=== PATIENT | female | born 1935 | race Caucasian/White ===

== ENCOUNTER 2022-09-26 11:00 | Inpatient (IN) | payer BC ==
[~2022-09-26] VITALS: Ht 157.5 cm; Wt 75.5 kg
[2022-09-26] VITALS (22 sets, daily range): BP systolic 85–119; BP diastolic 38–76
--- NOTE | 2022-09-26 11:00 | NUR ---
RECEIVED PT 87 YRS FEMALE CAME FROM HOME C/O Ccoughing and genralized weekness goting aorse today genralized weekness awake and alert
[2022-09-26] MEDS ORDERED: SUCCINYLCHOLINE CHLORIDE 20 MG/ML VIAL IV ONE ×2 (11:03→14:30)
[2022-09-26] MEDS ORDERED: ETOMIDATE 2 MG/ML VIAL IV ONE ×2 (11:03→14:30)
[2022-09-26] MEDS ORDERED: IV NS 0.9% 1,000 ML BAG IV ONE (11:30)
--- NOTE | 2022-09-26 11:40 | NUR ---
INSERTED ANGO CATHETER G 20 ON RT AC BLOOD DROW AND SENT TO LAB
[2022-09-26 12:12] LABS: BASOPHILS # (AUTO) 0.1 K/uL (0.0-0.2); BASOPHILS % (AUTO) 0.4 % (0.0-2.0); HEMATOCRIT 40 % (33-45); HEMOGLOBIN 13.1 g/dL (11.5-14.8); LYMPHOCYTES # (AUTO) 0.4 K/uL (0.8-4.8); LYMPHOCYTES % (AUTO) 3.4 % (20.0-44.0); MEAN CORPUSCULAR HGB CONC 33 g/dl (31.0-36.0); MEAN CORPUSCULAR VOLUME 89 fL (82-100); MONOCYTES # (AUTO) 1.2 K/uL (0.1-1.30); MONOCYTES % (AUTO) 10.3 % (2.0-12.0); NEUTROPHILS % (AUTO) 85.9 % (43.0-81.0); PLATELET COUNT (AUTO) 253 K/uL (150-450); RED BLOOD CELL COUNT(AUTO) 4.46 MIL/uL (4.0-5.2); WHITE BLOOD COUNT (AUTO) 11.6 K/uL (4.3-11.0)
--- NOTE | 2022-09-26 12:30 | NUR ---
PT STARTED HAVE SOB 2LNC ON CLOSLY OBSEVETION AND PLACE PT ON FIO2 100% STILL SOB
[2022-09-26 12:47] LABS: ALANINE AMINOTRANSFERASE 14 U/L (12-78); ALBUMIN 3.5 g/dL (3.4-5.0); ALKALINE PHOSPHATASE 79 U/L (46-116); ASPARTATE AMINOTRANSFERASE 23 U/L (15-37); BILIRUBIN,DIRECT 0.1 mg/dL (0.0-0.2); BILIRUBIN,TOTAL 0.5 mg/dL (0.2-1.0); CALCIUM, SERUM 8.4 mg/dL (8.5-10.1); CARBON DIOXIDE 27 mmol/L (21-32); CHLORIDE 98 mmol/L (98-107); CREATININE 0.8 mg/dL (0.6-1.3); GLUCOSE 119 mg/dL (74-106); POTASSIUM 3.7 mmol/L (3.5-5.1); SODIUM SERUM 134 mmol/L (136-145); TOTAL PROTEIN, SERUM 6.7 g/dL (6.4-8.2); UREA NITROGEN, BLOOD 10 mg/dL (7-18)
[2022-09-26] MEDS ORDERED: VANCOMYCIN 1 GM in IV D5W 250 ML IV ONE (13:00)
[2022-09-26] MEDS ORDERED: CEFEPIME 1 GM in IV D5W 50 ML IV ONE (13:00)
[2022-09-26] MEDS ORDERED: NTG 50 MG/D5W250 ML BOTTL 250 ML IV PRN (13:00)
--- NOTE | 2022-09-26 13:00 | NUR ---
MOVE SHEET SUBMITTED.
--- NOTE | 2022-09-26 13:01 | NUR ---
DR. ZUNIGA AT BED SIDE PLACE PT ON PIPAB PT ON ASSISST
--- NOTE | 2022-09-26 13:01 | NUR ---
pt with sever sob swating skin cold and calmy
[2022-09-26] MEDS ORDERED: NITROGLYCERIN PACKET 1 GM PACKET ONE (13:06)
--- NOTE | 2022-09-26 13:15 | NUR ---
ETOMADITE 20 MG IVP GIVEN FALLOW WITH SUCCy 80mg ETT FR 7.5 ANF LIP LINE 22CM WITH CAMMERY GIDED AT 1318 CO2 GOLD COLOR CONECTED TO VENT SITEING AC 20 TV 500 PEEP 5 FIO2 100% HOB 40#
[2022-09-26] MEDS ORDERED: FUROSEMIDE 40 MG/4 ML VIAL IV ONE (13:30)
[2022-09-26] MEDS ORDERED: PROPOFOL 100 ML ONE (13:31)
--- NOTE | 2022-09-26 13:39 | NUR ---
[facility] CALLED DIRECTOR OF BLOOD PAGED.
--- NOTE | 2022-09-26 13:40 | NUR ---
SHAUN GARY PT WT 63K/MIN AT 10MCG/KG/MIN
[2022-09-26 13:42] LABS: ABG BASE EXCESS -6.6 mmol/L; ABG PCO2 54.9 mmHg (35.0-45.0); ABG PH 7.217 (7.350-7.450); ABG PO2 368.3 mmHg (75.0-100.0); COHb 0.6 % (0.5-1.5); MetHb 0.5 % (0.0-1.5); O2Hb 98.4 % (94.0-97.0); SITE, ABG Right Radial
[2022-09-26] MEDS ORDERED: LATA2.5D15 EACHEYE (13:58)
[2022-09-26] MEDS ORDERED: LEVO100T9 PO (13:58)
[2022-09-26] MEDS ORDERED: AMLO-212 PO (13:58)
[2022-09-26] MEDS ORDERED: NITR100C15 PO (13:58)
[2022-09-26] MEDS ORDERED: FUROSEMIDE 40 MG/4 ML VIAL ONE (14:13)
--- NOTE | 2022-09-26 14:42 | NUR ---
RT INTUBATED WITH 7.5ETT 22CM AT LIP BILATERAL EQUAL BREATH SOUNDS, C02 COLOR CHANGE PLACED ON MECH VENT ABG DONE 5 MINS AFTER SETTING AC 18 500 +5 100% CHEST XRAY DONE TUBE PLACEMENT CONFIRMED WILL CONT TO MONITOR Addendum: 09/26/22 at 1444 by DELROY OVALLES RT Amended: Links added.
--- NOTE | 2022-09-26 14:42 | NUR ---
COVID SWAB SENT TO LAB
[2022-09-26 15:03] LABS: BILIRUBIN,URINE NEGATIVE (NEGATIVE); COLOR,URINE YELLOW (YELLOW); LEUKOCYTE ESTERASE ,URINE TRACE (NEGATIVE); NITRITE, URINE NEGATIVE (NEGATIVE); PROTEIN,URINE 2+ mg/dl (NEGATIVE); UGLUCOSE NEGATIVE (NEGATIVE); UROBILINOGEN,URINE 0.2 EU/dL (0.2)
[2022-09-26] MEDS ORDERED: MAG HYDROX/AL HYDROX/SIMETH 30 ML UDC PO PRN (15:30)
[2022-09-26] MEDS ORDERED: ONDANSETRON HCL/PF 4 MG/2 ML VIAL IVP PRN (15:30)
[2022-09-26] MEDS ORDERED: ZOLPIDEM TARTRATE 5 MG TABLET PO PRN (15:30)
[2022-09-26] MEDS ORDERED: MAGNESIUM HYDROXIDE 30 ML UDC PO PRN (15:30)
[2022-09-26] MEDS ORDERED: Z GUARD REMEDY 4 OZ OINT TP PRN (15:30)
[2022-09-26] MEDS ORDERED: ACETAMINOPHEN 325 MG TABLET PO PRN (15:30)
--- NOTE | 2022-09-26 15:42 | NUR ---
GOT BED 269
--- NOTE | 2022-09-26 15:44 | NUR ---
BED ASSIGNMENT CHANGED TO ICU 261
[2022-09-26] MEDS ORDERED: PROPOFOL 100 ML IV ONE (16:00)
--- NOTE | 2022-09-26 16:40 | NUR ---
HAND OFF Ryder GUERRA RN TO ROOM 261 WITH VENT FIO2 50% AC 20 TV500 PEEP 5 O2 SAT 99%
[2022-09-26 16:44] LABS: BACTERIA,URINE 1+ /HPF (None Seen); MUCUS,URINE Few /LPF (None Seen); SQUAMOUS EPITHELIAL CELL,UR 0-2 /HPF (None Seen)
--- NOTE | 2022-09-26 17:00 | NUR ---
INFZ SWAB SENT TO LAB
--- NOTE | 2022-09-26 18:00 | NUR ---
EMBEDDED ENGINEER NOTES RECEIVED PATIENT FROM ER INTUBATED, AND INFUSING DIPRIVAN 25MCG/KG/MIN. PATIENT HAS NO ACUTE EXPIRATORY DISTRESS TOLERATING SETTING WELL ETT- 7.5/22, TV-500, P-5, AC- 20, FIO2-100%. T-98.3. 166.7LB. SKIN ASSESSMENT DONE INTACT. IV ACCESS ON RIGHT HAND #18. DUE MEDICATION ADMINISTERED, PALACIOS DRAINING VIA GRAVITY OUTPUT WAS 300ML. BEDSIDE MONITOR SHOWS 75 SINUS RHYTHM. BILATERAL RESTRAIN ON RECHECKED CIRCULATION Q 2 HR. FAMILY NEXT TO THE BED. BELONGING SEND HOME WITH FAMILY, ONLY PATIENT HAS FOUR WHITE RINGS, AND WHITE PLAIN BRACELET ON. FAMILY SIGN BELONGING LIST. ENDORSED ONCOMING NURSE CRISTY.
[2022-09-26] MEDS: ENOXAPARIN SODIUM 60 MG/0.6 ML DISP.SYRIN SQ SCH (18:08)
[2022-09-26 18:17] LABS: ABG BASE EXCESS 1.3 mmol/L; ABG OXYGEN SATURATION 98.5 % (92.0-98.5); ABG PCO2 32.8 mmHg (35.0-45.0); ABG PH 7.485 (7.350-7.450); ABG PO2 120.2 mmHg (75.0-100.0); AaDO2 199.4 mmHg; COHb 0.7 % (0.5-1.5); MetHb 0.2 % (0.0-1.5); O2Hb 97.6 % (94.0-97.0); SITE, ABG Left Radial
--- NOTE | 2022-09-26 20:20 | NUR ---
BASEBALL GLOVE SHAPER. INITIAL ASSESSMENT. RECEIVED THE PT REST IN BED. ORALLY INTUBATED. SEDATED WITH PROPOFOL. ETT 7.5,AC 20 ,TV 500,FIO2 100.PEEP 5. SAT 98%.YARDING SUPERVISOR SHOWING NSR. IV RT HAND 18G. PROPOFOL 30 MCG/KG/MIN, KIMANI SOFT WRIST RESTRAINT CHECKED AND RELEASED. NO INJURY OR REDNESS NOTED. WILL CONTINUE TO MONITOR VITALS,
[2022-09-26] MEDS: PROPOFOL 100 ML IV PRN (21:16)
[2022-09-26] MEDS: LATANOPROST EYE DROP 0.005% 2.5 ML BOTTLE EACHEYE SCH (22:00)
[2022-09-27] VITALS (96 sets, daily range): BP systolic 64–133; BP diastolic 37–74
--- NOTE | 2022-09-27 00:37 | NUR ---
troponin 563. notified control analyst mary hill. pt on [facility]
[2022-09-27] MEDS: CEFEPIME 2 GM in IV D5W 100 ML IV SCH ×2 (02:08→13:40)
[2022-09-27] MEDS ORDERED: VANCOMYCIN 0.75 GM in IV D5W 250 ML IV SCH (03:00)
--- NOTE | 2022-09-27 03:14 | NUR ---
LIME VAT TENDER. AM CARE GIVEN. REMAINING SAME VENT SETTINGS TOLERATED WELL. SAT 98%. NO QCUTE DISTRESS NOTED. YARD PIPE GRADER SHOWING NSR. IV RT AND LT HAND , PROPOFOL 30MCG/KG/MIN, TKO RUNNING. FC PATENT. KIMANI SOFT WRIST RESTRAINT CHECKED AND RELEASED. NO INJURY OR REDNESS NOTED.
[2022-09-27 05:00] LABS: BASOPHILS % (AUTO) 0.2 % (0.0-2.0); HEMATOCRIT 37 % (33-45); LYMPHOCYTES # (AUTO) 0.6 K/uL (0.8-4.8); LYMPHOCYTES % (AUTO) 6.4 % (20.0-44.0); MEAN CORPUSCULAR HGB CONC 33 g/dl (31.0-36.0); MEAN CORPUSCULAR VOLUME 91 fL (82-100); MONOCYTES # (AUTO) 0.9 K/uL (0.1-1.30); MONOCYTES % (AUTO) 10.4 % (2.0-12.0); NEUTROPHILS # (AUTO) 7.6 K/uL (1.8-8.9); PLATELET COUNT (AUTO) 195 K/uL (150-450); RED BLOOD CELL COUNT(AUTO) 4.04 MIL/uL (4.0-5.2); WHITE BLOOD COUNT (AUTO) 9.1 K/uL (4.3-11.0)
[2022-09-27 05:17] LABS: CALCIUM, SERUM 7.5 mg/dL (8.5-10.1); CARBON DIOXIDE 22 mmol/L (21-32); CHLORIDE 99 mmol/L (98-107); GLUCOSE 123 mg/dL (74-106); MAGNESIUM 1.9 mg/dL (1.8-2.4); PHOSPHORUS 2.8 mg/dL (2.5-4.9); SODIUM SERUM 131 mmol/L (136-145); UREA NITROGEN, BLOOD 17 mg/dL (7-18)
[2022-09-27 05:54] LABS: THYROID STIMULATING HORMONE 2.535 uIU/mL (0.358-3.74)
[2022-09-27] MEDS ORDERED: PANTOPRAZOLE 40 MG VIAL IV SCH (09:00)
[2022-09-27] MEDS: FUROSEMIDE 40 MG/4 ML VIAL IV SCH (09:10)
[2022-09-27] MEDS: LEVOTHYROXINE SODIUM 100 MCG TABLET PO SCH (09:10)
[2022-09-27] MEDS: ENOXAPARIN SODIUM 60 MG/0.6 ML DISP.SYRIN SQ SCH ×2 (09:12→21:04)
[2022-09-27] MEDS: AMLODIPINE BESYLATE 5 MG TABLET PO SCH (09:12)
--- NOTE | 2022-09-27 09:30 | NUR ---
rn notes inserted ngt at this time, chest x-ray ordered, also get order picc line insertion.
[2022-09-27] MEDS: PROPOFOL 100 ML IV PRN ×3 (09:39→21:18)
[2022-09-27] MEDS: POTASSIUM CL. PREMIX PERIPHER. 50 ML IV SCH ×6 (10:26→17:43)
[2022-09-27] MEDS ORDERED: JEVITY 1.2 CAL 1,000 ML BOTTLE GT PRN (11:00)
--- NOTE | 2022-09-27 12:30 | NUR ---
RN NOTES STARTED NGT FEEDING AT THIS TIME 25 ML/HR.
[2022-09-27] MEDS: OSELTAMIVIR PHOSPHATE 75 MG CAPSULE PO SCH ×2 (13:45→16:06)
[2022-09-27] MEDS ORDERED: OSELTAMIVIR PHOSPHATE 75 MG CAPSULE PO SCH (17:00)
[2022-09-27] MEDS: IV NS 0.9% 250 ML IV PRN (17:53)
--- NOTE | 2022-09-27 19:00 | NUR ---
RN NOTES PM CARE DONE, SUCTION, DUE MEDICATION ADMINISTERED, PATIENT SEDATED DIPRIVAN 40MCG/KG/MIN. BP DROPS 87/42, P- 86 , GET ORDER DIPRIVAN TITRATE PER PROTOCOL. URINE OUTPUT WAS 850 ML.IV ACCESS ON LEONIDAS MIDLINE INTACT. ASSIST TURN AND REPOSTION Q 2HR. TOLERATING FEEDING WELL. RECHECKED RESTRAIN CIRCULATION Q 2 HR. ASSIST TURN AND REPOSTION Q 2 HR. ENDORSED ONCOMING NURSE CRISTY.
[2022-09-27] MEDS ORDERED: NOREPINEPHRINE 8MG/250ML RTU 250 ML IV ONE (21:46)
[2022-09-27] MEDS: NOREPINEPHRINE 8 MG in IV NS 0.9% 242 ML IV PRN (21:49)
--- NOTE | 2022-09-27 22:00 | NUR ---
ICU/VACUUM FORMING MACHINE OPERATOR HAD TO START LEVO FOR LOW BP IN THE 70'S FOR A FEW CYCLES. ELECTRICAL LOGGING ENGINEER NURSE STATED THIS. ALSO THIS WAS STARTED WITH A PREMIX BAG OF LEVO WHICH WAS IN D5W INSTEAD OF NS.
[2022-09-27] MEDS: LATANOPROST EYE DROP 0.005% 2.5 ML BOTTLE EACHEYE SCH (22:25)
--- NOTE | 2022-09-27 22:25 | NUR ---
ICU/TRANSFER MACHINE OPERATOR REMOVED JEWELRY FROM PT , PLACED IN THE ICU SAFE. UPDATED THE BELONGING LIST. THERE WAS A YELLOW BRACELET, 5 RINGS IN TOTAL, 2X YELLOW RINGS WITH STONES, 3X SILVER RINGS WITH STONES. GLADYS Marsh RN WAS WITNESS TO THIS.
[2022-09-28] VITALS (96 sets, daily range): BP systolic 87–135; BP diastolic 38–103
[2022-09-28] MEDS: PROPOFOL 100 ML IV PRN ×4 (02:11→20:10)
[2022-09-28] MEDS: CEFEPIME 2 GM in IV D5W 100 ML IV SCH ×2 (02:11→14:46)
--- NOTE | 2022-09-28 04:45 | NUR ---
ICU/GRIEVANCE COORDINATOR TROP IS 247 THIS WAS LOWERED DOWN FROM 500'S ROM DAYS BEFORE.
[2022-09-28 05:07] LABS: BASOPHILS # (AUTO) 0.1 K/uL (0.0-0.2); BASOPHILS % (AUTO) 0.5 % (0.0-2.0); EOSINOPHILS % (AUTO) 0.3 % (0.0-6.0); HEMATOCRIT 40 % (33-45); LYMPHOCYTES # (AUTO) 1.2 K/uL (0.8-4.8); MEAN CORPUSCULAR HGB CONC 33 g/dl (31.0-36.0); MEAN CORPUSCULAR VOLUME 90 fL (82-100); MONOCYTES # (AUTO) 1.9 K/uL (0.1-1.30); MONOCYTES % (AUTO) 15.2 % (2.0-12.0); NEUTROPHILS # (AUTO) 9.2 K/uL (1.8-8.9); PLATELET COUNT (AUTO) 231 K/uL (150-450); WHITE BLOOD COUNT (AUTO) 12.5 K/uL (4.3-11.0)
[2022-09-28 05:27] LABS: ALBUMIN 2.6 g/dL (3.4-5.0); BILIRUBIN,TOTAL 0.5 mg/dL (0.2-1.0); CALCIUM, SERUM 8.2 mg/dL (8.5-10.1); CREATININE 1.3 mg/dL (0.6-1.3); MAGNESIUM 2.1 mg/dL (1.8-2.4); PHOSPHORUS 3.5 mg/dL (2.5-4.9); POTASSIUM 3.2 mmol/L (3.5-5.1); TOTAL PROTEIN, SERUM 6.1 g/dL (6.4-8.2)
--- NOTE | 2022-09-28 06:10 | NUR ---
ICU/SAMPLER TESTER STABLE BP. WAS ABLE TO TITRATE DOWN THE LEVO. WILL CONTINUE TO MONITOR THIS PT.
--- NOTE | 2022-09-28 07:30 | NUR ---
OPENING NOTE: REPORT RECEIVED FROM TYREE VILLELA. ORDERS AND LABS REVIEWED DURING REPORT.
[2022-09-28] MEDS: OSELTAMIVIR PHOSPHATE 75 MG CAPSULE PO SCH ×2 (08:46→16:56)
[2022-09-28] MEDS: LEVOTHYROXINE SODIUM 100 MCG TABLET PO SCH (08:46)
[2022-09-28] MEDS: PANTOPRAZOLE 40 MG/PACK PACK GT SCH (08:47)
[2022-09-28] MEDS: FUROSEMIDE 40 MG/4 ML VIAL IV SCH (08:47)
[2022-09-28] MEDS: AMLODIPINE BESYLATE 5 MG TABLET PO SCH (08:48)
[2022-09-28] MEDS: ENOXAPARIN SODIUM 60 MG/0.6 ML DISP.SYRIN SQ SCH ×2 (08:49→21:17)
[2022-09-28] MEDS ORDERED: JEVITY 1.2 CAL 1,000 ML BOTTLE GT PRN (09:30)
[2022-09-28] MEDS ORDERED: POTASSIUM CHLORIDE 20 MEQ POWDER PACKET GT SCH (10:00)
[2022-09-28] MEDS: JEVITY 1.2 CAL 1,000 ML BOTTLE GT PRN (12:40)
[2022-09-28] MEDS: IV NS 0.9% 250 ML IV PRN (16:28)
--- NOTE | 2022-09-28 18:55 | NUR ---
END OF SHIFT NOTE: BP MEDS HELD WHILE ON LEVOPHED GTT. NO SIGNIFICANT EVENTS THIS SHIFT.
[2022-09-28] MEDS: LATANOPROST EYE DROP 0.005% 2.5 ML BOTTLE EACHEYE SCH (21:17)
[2022-09-29] VITALS (70 sets, daily range): BP systolic 88–148; BP diastolic 38–110
[2022-09-29] MEDS: PROPOFOL 100 ML IV PRN ×2 (00:24→05:27)
[2022-09-29] MEDS: NOREPINEPHRINE 8 MG in IV NS 0.9% 242 ML IV PRN (00:25)
[2022-09-29] MEDS: CEFEPIME 2 GM in IV D5W 100 ML IV SCH ×2 (02:03→14:05)
--- NOTE | 2022-09-29 04:30 | NUR ---
ICU/CLEARING DISTRIBUTION CLERK NO BLOOD PRESSURE WAS CAPTURED FROM [id number]. BLOOD PRESSURE WAS STARTED AND CYCLED TO 90'S @5 WILL CLOSELY MONITOR THIS PT AND HER BLOOD PRESSURE. MADE CHEMICAL PROCESSING SUPERVISOR AND CHARGE NURSE AWARE THAT PT IS STILL ON CURRENTLY ON LEVO
[2022-09-29 04:39] LABS: ABG BASE EXCESS -1.4 mmol/L; ABG OXYGEN SATURATION 96.9 % (92.0-98.5); ABG PCO2 38.2 mmHg (35.0-45.0); ABG PO2 92.6 mmHg (75.0-100.0); AaDO2 76.4 mmHg; COHb 0.5 % (0.5-1.5); MetHb 0.1 % (0.0-1.5); O2Hb 96.3 % (94.0-97.0); SITE, ABG Left Radial; VENT MODE, BG AC18 450 30% 5
[2022-09-29 05:26] LABS: BASOPHILS % (AUTO) 0.5 % (0.0-2.0); EOSINOPHILS % (AUTO) 2.1 % (0.0-6.0); HEMATOCRIT 36 % (33-45); HEMOGLOBIN 11.9 g/dL (11.5-14.8); LYMPHOCYTES # (AUTO) 0.7 K/uL (0.8-4.8); LYMPHOCYTES % (AUTO) 9.9 % (20.0-44.0); MEAN CORPUSCULAR HGB CONC 33 g/dl (31.0-36.0); MEAN CORPUSCULAR VOLUME 90 fL (82-100); MONOCYTES # (AUTO) 0.9 K/uL (0.1-1.30); MONOCYTES % (AUTO) 13.3 % (2.0-12.0); NEUTROPHILS # (AUTO) 4.9 K/uL (1.8-8.9); NEUTROPHILS % (AUTO) 74.2 % (43.0-81.0); PLATELET COUNT (AUTO) 190 K/uL (150-450); RED BLOOD CELL COUNT(AUTO) 4.04 MIL/uL (4.0-5.2); WHITE BLOOD COUNT (AUTO) 6.6 K/uL (4.3-11.0)
[2022-09-29 05:30] LABS: CALCIUM, SERUM 8.3 mg/dL (8.5-10.1); CARBON DIOXIDE 24 mmol/L (21-32); CHLORIDE 104 mmol/L (98-107); CREATININE 1.4 mg/dL (0.6-1.3); GLUCOSE 132 mg/dL (74-106); MAGNESIUM 2.2 mg/dL (1.8-2.4); PHOSPHORUS 3.5 mg/dL (2.5-4.9); POTASSIUM 3.5 mmol/L (3.5-5.1); SODIUM SERUM 137 mmol/L (136-145); UREA NITROGEN, BLOOD 29 mg/dL (7-18)
[2022-09-29 06:59] LABS: ABG BASE EXCESS -0.2 mmol/L; ABG OXYGEN SATURATION 98.1 % (92.0-98.5); ABG PCO2 29.8 mmHg (35.0-45.0); ABG PH 7.489 (7.350-7.450); ABG PO2 105.7 mmHg (75.0-100.0); AaDO2 145.2 mmHg; COHb 0.5 % (0.5-1.5); MetHb 0.2 % (0.0-1.5); O2Hb 97.4 % (94.0-97.0); SITE, ABG Left Radial
--- NOTE | 2022-09-29 07:30 | NUR ---
OPENING NOTE: REPORT RECEIVED FROM TYREE VILLELA. ORDERS AND LABS REVIEWED DURING REPORT. BP MEDS HELD TODAY D/T PT ON LEVOPHED GTT. PER REPORT PT HAD AN UNEVENTFUL NIGHT. PLAN FOR WEANING TRIAL TODAY. PT CHECKED ON HOURLY AND PRN BY NURSING STAFF.
[2022-09-29] MEDS: PANTOPRAZOLE 40 MG/PACK PACK GT SCH (08:57)
[2022-09-29] MEDS: LEVOTHYROXINE SODIUM 100 MCG TABLET PO SCH (08:57)
[2022-09-29] MEDS: OSELTAMIVIR PHOSPHATE 75 MG CAPSULE PO SCH ×2 (08:57→16:22)
[2022-09-29] MEDS: ENOXAPARIN SODIUM 60 MG/0.6 ML DISP.SYRIN SQ SCH (08:58)
[2022-09-29] MEDS: AMLODIPINE BESYLATE 5 MG TABLET PO SCH (08:58)
[2022-09-29] MEDS ORDERED: DC PROPOFOL WHEN EXTUBATED XX PRN ×2 (09:00→12:30)
--- NOTE | 2022-09-29 09:15 | NUR ---
DIPRIVAN AND TUBE FEEDING TURNED OFF AT THIS TIME FOR WEANING TRIAL. PT'S SONS ARE AT BEDSIDE, THEY WERE INSTRUCTED TO KEEP PATIENT CALM WHEN SEDATION WEARS OFF.
--- NOTE | 2022-09-29 09:35 | NUR ---
WEANING TRIAL STARTED AT THIS TIME BY RT. PT APPEARS CALM, SONS ARE AT BEDSIDE.
--- NOTE | 2022-09-29 09:35 | NUR ---
RT NOTE PLACED PATIENT ON SIMV MODE PER MD ORDER. ROSETTE HULL NOTIFIED AND AWARE. MONITORING PATIENT CLOSELY FOR ANY CHANGE OF CONDITION. Addendum: 09/29/22 at 1121 by LIGIA HUGGINS RT Amended: Links added.
[2022-09-29] MEDS ORDERED: ENOXAPARIN SODIUM 60 MG/0.6 ML DISP.SYRIN SQ SCH (10:56)
[2022-09-29 11:00] LABS: ABG OXYGEN SATURATION 96.9 % (92.0-98.5); ABG PCO2 36.2 mmHg (35.0-45.0); ABG PH 7.405 (7.350-7.450); ABG PO2 90.8 mmHg (75.0-100.0); AaDO2 80.6 mmHg; COHb 0.7 % (0.5-1.5); MetHb 0.1 % (0.0-1.5); O2Hb 96.1 % (94.0-97.0); PEEP,BG 5 cm H2O; SITE, ABG Left Radial; VT, ABG 450 mL
[2022-09-29] MEDS: JEVITY 1.2 CAL 1,000 ML BOTTLE GT PRN (12:09)
--- NOTE | 2022-09-29 12:20 | NUR ---
RT NOTE PATIENT EXTUBATED PER MD ORDER. PLACED PT ON 2LPM NC. FAMILY AT BEDSIDE. ROSETTE HULL AWARE. PT STABLE, NO SOB NOTED AT THIS TIME. WILL CONTINUE TO MONITOR FOR ANY CHANGES.
--- NOTE | 2022-09-29 12:30 | NUR ---
PT WAS EXTUBATED AT 1218, 2L NC APPLIED. TUBE FEEDING RESTARTED AT THIS TIME. PT APPEARS ALERT OX1-2 AT THIS TIME, FOLLOWS COMMANDS. WILL CONTINUE TO MONITOR.
[2022-09-29] MEDS: IV NS 0.9% 250 ML IV PRN (14:08)
--- NOTE | 2022-09-29 14:15 | NUR ---
PT APPEARS MUCH MORE ALERT, SPEAKING CLEARLY. CONTINUES TO HAVE MODERATE AMOUNT OF SPUTUM THAT SHE IS COUGHING UP AND SWALLOWING WITHOUT DIFFICULTY, NO CHOKING NOTED. PT GIVEN A FEW ICE CHIPS, PT WAS ABLE TO CHEW AND SWALLOW WITHOUT DIFFICULTY OR COUGHING. PT'S SONS ARE AT BEDSIDE, VERY COOPERATIVE AT THIS TIME.
--- NOTE | 2022-09-29 17:15 | NUR ---
PT PASSED BEDSIDE SWALLOW EVAL. SEE INTERVENTION. PT CONTINUES TO HAVE SOME SECRETIONS THAT SHE IS ABLE TO COUGH UP AND SWALLOW BUT NOT MUCH PRIOR TO EXTUBATION. NG TUBE REMOVED AT THIS TIME, TUBE FEEDING STOPPED. DR ESPINOZA NOTIFIED.
[2022-09-29] MEDS: LATANOPROST EYE DROP 0.005% 2.5 ML BOTTLE EACHEYE SCH (22:00)
[2022-09-30] VITALS (34 sets, daily range): BP systolic 92–151; BP diastolic 33–86
[2022-09-30 05:16] LABS: BASOPHILS % (AUTO) 0.3 % (0.0-2.0); EOSINOPHILS % (AUTO) 1.8 % (0.0-6.0); HEMATOCRIT 36 % (33-45); HEMOGLOBIN 11.7 g/dL (11.5-14.8); LYMPHOCYTES # (AUTO) 0.7 K/uL (0.8-4.8); LYMPHOCYTES % (AUTO) 12.2 % (20.0-44.0); MEAN CORPUSCULAR HGB CONC 33 g/dl (31.0-36.0); MEAN CORPUSCULAR VOLUME 90 fL (82-100); MONOCYTES # (AUTO) 0.9 K/uL (0.1-1.30); MONOCYTES % (AUTO) 15.1 % (2.0-12.0); NEUTROPHILS % (AUTO) 70.6 % (43.0-81.0); PLATELET COUNT (AUTO) 193 K/uL (150-450); WHITE BLOOD COUNT (AUTO) 5.7 K/uL (4.3-11.0)
[2022-09-30 05:38] LABS: CALCIUM, SERUM 8.8 mg/dL (8.5-10.1); CREATININE 1.1 mg/dL (0.6-1.3); MAGNESIUM 2.2 mg/dL (1.8-2.4); POTASSIUM 3.7 mmol/L (3.5-5.1)
--- NOTE | 2022-09-30 06:31 | NUR ---
ICU/CASING RUNNING MACHINE TENDER PT'S BEEN ON 2 LITERS VIA N/C WITH SATURATION AT 97-98%. PT HAS A PRODUCTIVE COUGH. WILL CONTINUE TO MONITOR THIS PT AND HER SATURATION.
--- NOTE | 2022-09-30 07:30 | NUR ---
OPENING NOTE: REPORT RECEIVED FROM TYREE VILLELA. ORDERS AND LABS REVIEWED DURING REPORT. PER REPORT PT WAS CONFUSED OVERNIGHT AND TOOK OF OXYGEN AND SAT PROBE A FEW TIMES, WILL MONITOR CLOSELY. PT CHECKED ON HOURLY AND PRN BY NURSING STAFF.
[2022-09-30] MEDS: LEVOTHYROXINE SODIUM 100 MCG TABLET PO SCH (08:38)
[2022-09-30] MEDS: OSELTAMIVIR PHOSPHATE 75 MG CAPSULE PO SCH ×2 (08:38→17:42)
[2022-09-30] MEDS: PANTOPRAZOLE 40 MG TABLET.DR PO SCH (08:38)
[2022-09-30] MEDS: AMLODIPINE BESYLATE 5 MG TABLET PO SCH (08:38)
[2022-09-30] MEDS ORDERED: ENOXAPARIN SODIUM 60 MG/0.6 ML DISP.SYRIN SQ SCH (09:00)
[2022-09-30] MEDS: CEFEPIME 2 GM in IV D5W 100 ML IV SCH (14:51)
[2022-09-30] MEDS: LATANOPROST EYE DROP 0.005% 2.5 ML BOTTLE EACHEYE SCH (21:25)
--- NOTE | 2022-09-30 23:19 | NUR ---
ICU/CELL ATTENDANT HELPER PT WAS TRANSFERED TO ROOM 118-1 WITH MEDS AND BELONGINGS. REPORT GIVEN TO CATIA NURSE.
--- NOTE | 2022-09-30 23:30 | NUR ---
CATIA RN NOTE RECEIVED PT FROM ICU VIA BED. A/O X 3, NO SOB, NO DISTRESS OR DISCOMFORT NOTED. DENIES PAIN. ON O2 3L VIA N/C O2 SAT 99%. ON TELE SR HR 81. F/C INTACT AND PATENT DRAINING YELLOWISH COLOR URINE. LEONIDAS MIDLINE AND LT WRIST #20 [address] INTACT AND PATENT. SIDE RAILS UP X 2. ALL NEEDS ATTENDED. VSS. CONTINUE TO MONITOR HER.
[2022-10-01] VITALS: BP 132/61
[2022-10-01 04:00] VITALS: BP 131/73
--- NOTE | 2022-10-01 06:46 | NUR ---
CATIA RN NOTE PT IN BED AWAKE. NO DISTRESS OR DISCOMFORT NOTED. DENIES PAIN. F/C INTACT AND PATENT DRAINING YELLOWISH COLOR URINE. SIDE RAILS UP X 2 AND CALL LIGHT WITHIN REACH. WILL ENDORSE TO DAY SHIFT NURSE FOR CONTINUE TO CARE.
--- NOTE | 2022-10-01 07:25 | NUR ---
CATIA TELE OPENING NOTES: RECEIVED PATIENT IN BED, ASLEEP BUT EASILY AROUSES TO VOICE AND TOUCH. ON OXYGEN @ 3L/MIN VIA N/C WITH OXYGEN SATURATION OF 94$. NO RESPIRATORY DISTRESS NOTED, BREATHING EVEN AND UNLABORED. ON A-FIB WITH CONTROLLED RATE OF 89 PER TELE MONITOR. NO C/O CHEST PAIN OR DISCOMFORT NOTED AT THIS TIME. HAS IV ACCESSES ON RIGHT UPPER ARM MIDLINE AND LEFT WRIST, BOTH IN PLACE, PATENT AND FLUSHES WELL,, NO S/S INFILTRATION NOTED. PALACIOS CATHETER IN PLACE DRAINING WITH YELLOW COLORED URINE, NO HEMATURIA, NO SEDIMENTATION NOTED. ALL SAFETY MEASURES IN PLACE. BED LOCKED AND IN LOWEST POSITION WITH BED ALARM ON. WILL CONTINUE TO MONITOR PATIENT THROUGHOUT SHIFT.
[2022-10-01 07:32] LABS: BASOPHILS % (AUTO) 0.7 % (0.0-2.0); EOSINOPHILS % (AUTO) 3.1 % (0.0-6.0); HEMATOCRIT 37 % (33-45); HEMOGLOBIN 12.5 g/dL (11.5-14.8); LYMPHOCYTES # (AUTO) 0.7 K/uL (0.8-4.8); LYMPHOCYTES % (AUTO) 13.1 % (20.0-44.0); MEAN CORPUSCULAR HGB CONC 34 g/dl (31.0-36.0); MEAN CORPUSCULAR VOLUME 89 fL (82-100); MONOCYTES # (AUTO) 0.8 K/uL (0.1-1.30); MONOCYTES % (AUTO) 14.2 % (2.0-12.0); NEUTROPHILS # (AUTO) 3.8 K/uL (1.8-8.9); NEUTROPHILS % (AUTO) 68.9 % (43.0-81.0); PLATELET COUNT (AUTO) 225 K/uL (150-450); RED BLOOD CELL COUNT(AUTO) 4.18 MIL/uL (4.0-5.2); WHITE BLOOD COUNT (AUTO) 5.5 K/uL (4.3-11.0)
[2022-10-01 08:00] VITALS: BP 136/71
[2022-10-01] MEDS: PANTOPRAZOLE 40 MG TABLET.DR PO SCH (08:03)
[2022-10-01 08:09] LABS: CALCIUM, SERUM 9.4 mg/dL (8.5-10.1); CARBON DIOXIDE 28 mmol/L (21-32); CHLORIDE 102 mmol/L (98-107); GLUCOSE 105 mg/dL (74-106); MAGNESIUM 2.2 mg/dL (1.8-2.4); PHOSPHORUS 2.2 mg/dL (2.5-4.9); POTASSIUM 3.5 mmol/L (3.5-5.1); SODIUM SERUM 138 mmol/L (136-145); UREA NITROGEN, BLOOD 15 mg/dL (7-18)
[2022-10-01] MEDS: LEVOTHYROXINE SODIUM 100 MCG TABLET PO SCH (09:12)
[2022-10-01] MEDS: OSELTAMIVIR PHOSPHATE 75 MG CAPSULE PO SCH ×2 (09:12→17:09)
[2022-10-01] MEDS: AMLODIPINE BESYLATE 5 MG TABLET PO SCH (09:13)
[2022-10-01 12:00] VITALS: BP 136/71
[2022-10-01] MEDS ORDERED: NEUTRA PHOS 1 POWD.PACKET PO ONE (12:00)
--- NOTE | 2022-10-01 12:00 | NUR ---
PATIENT AMBULATED WITH THE PHYSICAL THERAPIST AND ASSESSED PATIENT'S GAIT AND WAS INFORMED THAT THE PATIENT NEEDS ONE ON ONE ASSISTANCE DURING AMBULATION AND MAY BENEFIT FROM FWW UPON DISCHARGE. REITERATED TO THE PATIENT THE IMPORTANCE OF CALLING FOR HELP WHENEVER SHE NEEDS TO GET OUT OF THE BED. PATIENT VERBALIZED UNDERSTANDING.
[2022-10-01] MEDS: CEFEPIME 2 GM in IV D5W 100 ML IV SCH (13:36)
[2022-10-01 16:00] VITALS: BP 146/62
--- NOTE | 2022-10-01 18:46 | NUR ---
CATIA TELE CLOSING NOTES: PATIENT IN BED,ON OXYGEN @ 3L/MIN VIA N/C WITH OXYGEN SATURATION OF 94$. NO RESPIRATORY DISTRESS NOTED, BREATHING EVEN AND UNLABORED. ON A-FIB WITH CONTROLLED RATE OF 89 PER TELE MONITOR. NO C/O CHEST PAIN OR DISCOMFORT NOTED AT THIS TIME. HAS IV ACCESSES ON RIGHT UPPER ARM MIDLINE AND LEFT WRIST, BOTH IN PLACE, PATENT AND FLUSHES WELL,, NO S/S INFILTRATION NOTED. PALACIOS CATHETER IN PLACE DRAINING WITH YELLOW COLORED URINE, NO HEMATURIA, NO SEDIMENTATION NOTED. ALL SAFETY MEASURES IN PLACE. BED LOCKED AND IN LOWEST POSITION WITH BED ALARM ON. WILL ENDORSE TO HEAD ORTHOPEDIC TEAM PHYSICIAN NURSE
--- NOTE | 2022-10-01 19:45 | NUR ---
CATIA TELE OPENING NOTE RECEIVED PATIENT IN BED, ASLEEP BUT EASILY AROUSES TO VOICE AND TOUCH. ON OXYGEN @ 3L/MIN VIA N/C WITH OXYGEN SATURATION OF 97%. NO RESPIRATORY DISTRESS NOTED, BREATHING EVEN AND UNLABORED. ON A-FIB WITH CONTROLLED RATE OF 94 PER TELE MONITOR. NO C/O PAIN OR DISCOMFORT NOTED AT THIS TIME. HAS 2 IV ACCESSES TO RIGHT UPPER ARM MIDLINE, AND TO LEFT WRIST, BOTH PATENT AND FLUSHES WELL,, NO S/S OF INFILTRATION NOTED. PALACIOS CATHETER IN PLACE DRAINING YELLOW COLORED URINE WITH NO SEDIMENTATION. SAFETY MEASURES IN PLACE: BED LOCKED AND IN LOWEST POSITION WITH BED ALARM ON, SIDE RAILS UP X2, CALL LIGHT WITHIN REACH. WILL CONTINUE TO MONITOR PATIENT THROUGHOUT SHIFT.
[2022-10-01 20:00] VITALS: BP 149/62
[2022-10-01] MEDS: LATANOPROST EYE DROP 0.005% 2.5 ML BOTTLE EACHEYE SCH (22:35)
[2022-10-02] VITALS: BP 149/62
[2022-10-02 04:00] VITALS: BP 142/59
--- NOTE | 2022-10-02 06:50 | NUR ---
TELE CLOSING NOTE PATIENT IN BED,ON OXYGEN @ 3L/MIN VIA N/C WITH OXYGEN SATURATION OF 95%. NO RESPIRATORY DISTRESS NOTED, BREATHING EVEN AND UNLABORED. ON TELE MONITOR READING A-FIB. NO C/O CHEST PAIN OR DISCOMFORT NOTED AT THIS TIME. HAS IV ACCESSES ON RIGHT UPPER ARM MIDLINE AND LEFT WRIST, BOTH IN PLACE, PATENT AND FLUSHES WELL,, NO S/S INFILTRATION NOTED. PALACIOS CATHETER IN PLACE DRAINING WITH YELLOW COLORED URINE, NO HEMATURIA, NO SEDIMENTATION NOTED. ALL SAFETY MEASURES IN PLACE. BED LOCKED AND IN LOWEST POSITION WITH BED ALARM ON. WILL ENDORSE TO AM SHIFT NURSE FOR CRISTY.
--- NOTE | 2022-10-02 07:30 | NUR ---
TELE OPENING NOTES: RECEIVED PATIENT IN BED, ASLEEP BUT EASILY AROUSES TO VOICE AND TACTILE STIMULI. ON OXYGEN @ 3L/MIN VIA N/C WITH OXYGEN SATURATION OF 100%. NO SOB NOTED, BREATHING EVEN AND UNLABORED. ON CONTROLLED A-FIB WITH HEART RATE OF 84 PER TELE MONITOR. NO S/S OF CHEST PAIN OR DISCOMFORT AT THIS TIME. HAS SALINE LOCK IV ACCESSES ON RIGHT UPPER ARM MIDLINE AND LEFT WRIST, BOTH IN PLACE, PATENT AND FLUSHES WELL,, NO S/S INFILTRATION NOTED. PALACIOS CATHETER IN PLACE DRAINING WITH YELLOW COLORED URINE, NO HEMATURIA, NO SEDIMENTATION NOTED. ALL SAFETY MEASURES IN PLACE. CALL LIGHT WITHIN REACH. BED LOCKED AND IN LOWEST POSITION WITH BED ALARM ON. WILL CONTINUE TO MONITOR PATIENT THROUGHOUT SHIFT.
[2022-10-02 07:33] LABS: BASOPHILS % (AUTO) 0.6 % (0.0-2.0); EOSINOPHILS % (AUTO) 5.5 % (0.0-6.0); HEMATOCRIT 36 % (33-45); HEMOGLOBIN 11.9 g/dL (11.5-14.8); LYMPHOCYTES # (AUTO) 0.9 K/uL (0.8-4.8); LYMPHOCYTES % (AUTO) 16.3 % (20.0-44.0); MEAN CORPUSCULAR HGB CONC 33 g/dl (31.0-36.0); MEAN CORPUSCULAR VOLUME 89 fL (82-100); MONOCYTES # (AUTO) 0.7 K/uL (0.1-1.30); MONOCYTES % (AUTO) 12.9 % (2.0-12.0); NEUTROPHILS # (AUTO) 3.7 K/uL (1.8-8.9); NEUTROPHILS % (AUTO) 64.7 % (43.0-81.0); PLATELET COUNT (AUTO) 260 K/uL (150-450); RED BLOOD CELL COUNT(AUTO) 4.04 MIL/uL (4.0-5.2); WHITE BLOOD COUNT (AUTO) 5.8 K/uL (4.3-11.0)
[2022-10-02] MEDS: PANTOPRAZOLE 40 MG TABLET.DR PO SCH (07:39)
[2022-10-02 07:51] LABS: CARBON DIOXIDE 28 mmol/L (21-32); CHLORIDE 104 mmol/L (98-107); CREATININE 0.9 mg/dL (0.6-1.3); GLUCOSE 101 mg/dL (74-106); MAGNESIUM 2.2 mg/dL (1.8-2.4); PHOSPHORUS 2.8 mg/dL (2.5-4.9); POTASSIUM 3.5 mmol/L (3.5-5.1); SODIUM SERUM 139 mmol/L (136-145); UREA NITROGEN, BLOOD 19 mg/dL (7-18)
[2022-10-02 08:00] VITALS: BP 147/63
[2022-10-02] MEDS: AMLODIPINE BESYLATE 5 MG TABLET PO SCH (08:24)
[2022-10-02] MEDS: OSELTAMIVIR PHOSPHATE 75 MG CAPSULE PO SCH ×2 (08:25→16:52)
[2022-10-02] MEDS: LEVOTHYROXINE SODIUM 100 MCG TABLET PO SCH (08:25)
--- NOTE | 2022-10-02 10:30 | NUR ---
PATIENT ACCIDENTALLY PULLED OUT HER IV LINES THINKING SHE WAS ABOUT TO GO HOME TODAY. PATIENT IS ALERT, ORIENTED X 3 BUT HAS PERIODS OF CONFUSION AND KEPT ON ASKING SAME QUESTIONS TO THE NURSE. PATIENT WAS REDIRECTED AND HAS NO C/O PAIN OR DISCOMFORT. NO RESPIRATORY DISTRESS NOTED. WILL TRY TO REINSERT IV LINE TO THE PATIENT. MD INFORMED. PATIENT ALSO REQUESTED TO USE THE BATHROOM, ASSISTED PATIENT AND NOTED TO BE A LITTLE UNSTEADY ON HER GAIT BUT WAS ABLE TO AMBULATE SAFELY WITH ASSISTANCE. WILL CONTINUE TO MONITOR PATIENT.
--- NOTE | 2022-10-02 11:00 | NUR ---
FAMILY MEMBERS CAME TO VISIT THE PATIENT. CALLED NEUROLOGY TECHNICIAN SHELDON @ EXT [phone] AND WILL TALK TO THE PATIENT AND FAMILY TO ADDRESS FAMILY'S CONCERN ABOUT THE PLAN FOR DISCHARGE.
--- NOTE | 2022-10-02 11:05 | NUR ---
PATIENT WAS TAKEN OFF OF OXYGEN PER MD'S RECOMMENDATION. PATIENT DENIES ANY SHORTNESS OF BREATH AT THIS TIME. WILL CONTINUE TO MONITOR PATIENT
[2022-10-02 12:00] VITALS: BP 131/67
--- NOTE | 2022-10-02 12:00 | NUR ---
PATIENT IS ON RA WITH OXYGEN SATURATION OF 95%. BREATHING EVEN AND UNLABORED. NO RESPIRATORY DISTRESS NOTED
[2022-10-02 16:00] VITALS: BP 146/62
--- NOTE | 2022-10-02 18:57 | NUR ---
TELE CLOSING NOTES: PATIENT IN BED. ON ROOM AIR WITH 95% 02 SAT NO SOB NOTED PATIENT WAS ABLE TO TOLERATE NO USE OF O2, BREATHING EVEN AND UNLABORED. PATIENT IS ALERT ORIENTED X2 WITH PERIODS OF CONFUSION, NOTED THROUGHOUT SHIFT. ON CONTROLLED A-FIB WITH HEART RATE OF 85 PER TELE MONITOR. NO S/S OF CHEST PAIN OR DISCOMFORT AT THIS TIME. HAS SALINE LOCK IV ACCESSES ON LEFT AC 22G IN PLACE, PATENT AND FLUSHES WELL, NO S/S INFILTRATION NOTED. PALACIOS CATHETER IN PLACE DRAINING WITH YELLOW COLORED URINE, NO HEMATURIA, NO SEDIMENTATION NOTED. ALL SAFETY MEASURES IN PLACE. CALL LIGHT WITHIN REACH. BED LOCKED AND IN LOWEST POSITION WITH BED ALARM ON, WILL ENDORSE TO JUNIOR HIGH SCHOOL PRINCIPAL NURSE
[2022-10-02 20:00] VITALS: BP 144/66
[2022-10-02] MEDS: LATANOPROST EYE DROP 0.005% 2.5 ML BOTTLE EACHEYE SCH (21:21)
[2022-10-03 01:00] VITALS: BP 131/61
[2022-10-03 04:00] VITALS: BP 140/57
--- NOTE | 2022-10-03 07:40 | NUR ---
TELE OPENING NOTES: PATIENT IN BED. ON ROOM AIR WITH 97% 02 SAT NO SOB NOTED PATIENT WAS ABLE TO TOLERATE NO USE OF O2, BREATHING EVEN AND UNLABORED. PATIENT IS ALERT ORIENTED X2 WITH PERIODS OF CONFUSION, NOTED THROUGHOUT SHIFT. ON CONTROLLED A-FIB WITH HEART RATE OF 95 PER TELE MONITOR. NO S/S OF CHEST PAIN OR DISCOMFORT AT THIS TIME. HAS SALINE LOCK IV ACCESSES ON LEFT AC 22G IN PLACE, PATENT AND FLUSHES WELL, NO S/S INFILTRATION NOTED. PALACIOS CATHETER IN PLACE DRAINING WITH YELLOW COLORED URINE, NO HEMATURIA, NO SEDIMENTATION NOTED. ALL SAFETY MEASURES IN PLACE. CALL LIGHT WITHIN REACH. BED LOCKED AND IN LOWEST POSITION WITH BED ALARM ON, WILL CONTINUE TO MONITOR.
[2022-10-03 08:00] VITALS: BP 140/78
[2022-10-03] MEDS: PANTOPRAZOLE 40 MG TABLET.DR PO SCH (08:36)
[2022-10-03] MEDS: LEVOTHYROXINE SODIUM 100 MCG TABLET PO SCH (08:53)
[2022-10-03] MEDS: AMLODIPINE BESYLATE 5 MG TABLET PO SCH (08:53)
[2022-10-03] MEDS: OSELTAMIVIR PHOSPHATE 75 MG CAPSULE PO SCH ×2 (08:54→16:21)
[2022-10-03 12:00] VITALS: BP 149/84
[2022-10-03 16:00] VITALS: BP 128/64
--- NOTE | 2022-10-03 18:12 | NUR ---
TELE CLOSING NOTES: PATIENT IN BED, ALERT/ORIENTED X4 . ON ROOM AIR WITH 100% 02 SAT NO SOB NOTED PATIENT WAS ABLE TO TOLERATE NO USE OF O2, BREATHING EVEN AND UNLABORED. NOTED THROUGHOUT SHIFT. ON CONTROLLED A-FIB WITH HEART RATE OF 87 PER TELE MONITOR. NO S/S OF CHEST PAIN OR DISCOMFORT AT THIS TIME. HAS SALINE LOCK IV ACCESSES ON LEFT AC 22G IN PLACE, PATENT AND FLUSHES WELL, NO S/S INFILTRATION NOTED. PALACIOS CATHETER IN PLACE DRAINING WITH YELLOW COLORED URINE, NO HEMATURIA, NO SEDIMENTATION NOTED. FOR DISCHARGED PER , AWAITS APPROVAL OF INSURANCE. ALL SAFETY MEASURES IN PLACE. CALL LIGHT WITHIN REACH. BED LOCKED AND IN LOWEST POSITION WITH BED ALARM ON, ENDORSED TO INCOMING NOD.
--- NOTE | 2022-10-03 19:30 | NUR ---
MS1 RN NOTES RECEIVED LAYING ON BED,A/O X4,BREATHING EASY,NO SOB,WITH LEONIDAS MIDLINE IN PLACE,INTACT AND PATENT.PALACIOS CATH DRAINS WELL WITH CLEAR YELLOW OUTPUT.AMBULATE WITH ASSIST.VITAL SIGNS WITH IN NORMAL LIMITS.CALL LIGHT IN REACH,NEEDS ANTICIPATED.
[2022-10-03 20:00] VITALS: BP 149/71
[2022-10-03] MEDS: LATANOPROST EYE DROP 0.005% 2.5 ML BOTTLE EACHEYE SCH (22:08)
[2022-10-04 04:00] VITALS: BP 150/70
--- NOTE | 2022-10-04 06:47 | NUR ---
MS1 RN NOTES SLEPT WITH INTERVALS,SALINE LOCK REMOVED PER PATIENT REQUEST.NO SOB NOTED,DISCHARGE PLANNING GOING TO SNF AWAITING INSURANCE AUTHORIZATION.IN NO ACUTE DISTRESS
--- NOTE | 2022-10-04 07:30 | NUR ---
REFRIGERATOR GLAZIER OPENING NOTES: RECEIVED PATIENT IN BED, AWAKE AOX4. PATIENT IS ON ROOM AIR. NO SOB NOTED, BREATHING EVEN AND UNLABORED. NO S/S OF CHEST PAIN OR DISCOMFORT AT THIS TIME. PLACE. PALACIOS CATHETER REMOVED BY RN THIS MORNING. ALL SAFETY MEASURES IN PLACE. CALL LIGHT WITHIN REACH. BED LOCKED AND IN LOWEST POSITION WITH BED ALARM ON. WILL CONTINUE TO MONITOR PATIENT THROUGHOUT SHIFT.
[2022-10-04] MEDS: PANTOPRAZOLE 40 MG TABLET.DR PO SCH (08:09)
[2022-10-04] MEDS: AMLODIPINE BESYLATE 5 MG TABLET PO SCH (09:11)
[2022-10-04] MEDS: LEVOTHYROXINE SODIUM 100 MCG TABLET PO SCH (09:11)
[2022-10-04 12:00] VITALS: BP 157/83
--- NOTE | 2022-10-04 14:14 | NUR ---
RN note Cho was removed at 0700, encouraged her to drink more water. Patient passed urine at 13:30, RU 173mL. No signs of urinary urgency is noted.
--- NOTE | 2022-10-04 19:03 | NUR ---
TRAVOGRAPH OPERATOR CLOSING NOTES: PATIENT IN BED, AWAKE AOX4. PATIENT IS ON ROOM AIR. NO SOB NOTED, BREATHING EVEN AND UNLABORED. NO S/S OF CHEST PAIN OR DISCOMFORT AT THIS TIME. PLACE. ALL SAFETY MEASURES IN PLACE. CALL LIGHT WITHIN REACH. BED LOCKED AND IN LOWEST POSITION WITH BED ALARM ON. WILL ENDORSE PATIENT TO COPPER PLATE PRINTER. PATIENT IS PENDING BED SPACE AT ASSISTED LIVING.
[2022-10-04 20:00] VITALS: BP 120/66
[2022-10-04] MEDS: LATANOPROST EYE DROP 0.005% 2.5 ML BOTTLE EACHEYE SCH (21:12)
[2022-10-05 04:28] VITALS: BP 118/69
--- NOTE | 2022-10-05 07:30 | NUR ---
MS RN OPENING NOTES RECEIVED PATIENT SITTING ON CHAIR AWAKE AND A/O X4. ON ROOM AIR TOLERATING WELL. NO SOB NOTED. NOT IN DISTRESS. WITH NO COMPLAINTS OF PAIN OR DISCOMFORT AT THIS TIME. WITH NO IV ACCESS. AWAITING FOR PLACEMENT CONFIRMATION FOR DISCHARGE. WILL MONITOR.
[2022-10-05] MEDS: PANTOPRAZOLE 40 MG TABLET.DR PO SCH (09:07)
[2022-10-05] MEDS: AMLODIPINE BESYLATE 5 MG TABLET PO SCH (09:07)
[2022-10-05] MEDS: LEVOTHYROXINE SODIUM 100 MCG TABLET PO SCH (09:08)
[2022-10-05 12:00] VITALS: BP 128/69
--- NOTE | 2022-10-05 12:38 | NUR ---
rn note per block and case maker and Luis cueto computer engineer ok to discharge to [facility] ,order carried out
--- NOTE | 2022-10-05 14:20 | NUR ---
MAGENTO WEB DEVELOPER NOTES PATIENT WAS SEEN BY AYSHA NAGY NP AND ORDERED PATIENT FOR DISCHARGE. PATIENT IS FOR DISCHARGE TO [facility]. DISCHARGE AND MEDICATION INSTRUCTIONS PROVIDED TO THE PATIENT. PATIENT VERBALIZED UNDERSTANDING. REMOVED NAME WRIST BAND. PATIENT WAS PICKED UP BY AMBULANCE PERSONNEL AND LEFT IN STABLE CONDITION VIA GURNEY. MD AND CHARGE NURSE ARE AWARE OF THE DISCHARGE.
== END 2022-10-05 14:53 | DRG 871 ==
LOC: ER 11:02 → UNDOADMIN 14:47 → MED 14:47 → ICU 16:06 → TELE1 09-30 16:36 → TELE-TD 09-30 22:42 → TELE1 10-01 16:16 → MEDSG1 10-03 08:49
PROVIDERS: ADMIT Student in an Organized Health Care Education/Training Program; ATTEND Nurse Practitioner Acute Care
PROC: 5A1945Z Respiratory Ventilation, 24-96 Consecutive Hours (ICD-10-PCS; principal; 2022-09-26)
PROC: 0BH18EZ Insertion of Endotracheal Airway into Trachea, Via Natural or Artificial Opening Endoscopic (ICD-10-PCS; 2022-09-26)
PROC: 05HB33Z Insertion of Infusion Device into Right Basilic Vein, Percutaneous Approach (ICD-10-PCS; 2022-09-27)
DX: A41.9 Sepsis, unspecified organism (principal); I21.4 Non-ST elevation (NSTEMI) myocardial infarction; J96.01 Acute respiratory failure with hypoxia; J15.9 Unspecified bacterial pneumonia; J96.02 Acute respiratory failure with hypercapnia; J10.08 Influenza due to other identified influenza virus with other specified pneumonia; R65.21 Severe sepsis with septic shock; J81.1 Chronic pulmonary edema; N39.0 Urinary tract infection, site not specified; E87.1 Hypo-osmolality and hyponatremia; I10 Essential (primary) hypertension; Z20.822 Contact with and (suspected) exposure to COVID-19; E03.9 Hypothyroidism, unspecified; H40.9 Unspecified glaucoma; Z87.440 Personal history of urinary (tract) infections; E87.6 Hypokalemia
CPT/HCPCS: 31720; 36410; 36415; 36600; 71045-TC; 80048-TC; 80053-TC; 80076-TC; 81001; 82803-TC; 83605-TC; 83735-TC; 83880; 84100-TC; 84443-TC; 84484-TC; 85025-TC; 85730-TC; 86803; 87040-TC; 87081-TC; 87086-TC; 87806; 93307-TC; 94002-TC; 94003-TC; 94760-TC; 94799-TC; 97116-TC; 97530-TC; 99082-TC; C9113; C9803; G0378; J0330; J0692; J1650; J1940; J3370; J3480; J3490; J7030; J7050; J7060

== ENCOUNTER 2022-10-16 18:49 | Inpatient (IN) | payer BC ==
[~2022-10-16] VITALS: Ht 165.1 cm; Wt 72.6 kg
[~2022-10-16 18:49] MED LIST: AMLO-212 PO; LATA2.5D15 EACHEYE; LEVO100T9 PO
--- NOTE | 2022-10-16 19:11 | NUR ---
PT ARRIVED COMPLAINING OF SOB. RECENTLY DIAGNOSED WITH HF. REPORT 87% ON ROOM AIR. PT ON NON REBREATHER SAT IS 97%. BREATHSOUNDS ARE WHEEZING TO ASCULTATION. BP 126/86 HR IS 103 PT IS SATBLE A/O X4. LAC 20G MECHANICAL DESIGN ENGINEER FACILITIES NO PAIN ON SALINE FLUSH Y TUBING CONNECTED. NO S/S OF DISTRESS OF ANY KIND Addendum: 10/16/22 at 1918 by ROB +2 PITTING EDEMA NOTED BILATERALLY ON THE LOWER EXTREMETIES
--- NOTE | 2022-10-16 19:24 | NUR ---
CALLED RT FOR ABG
--- NOTE | 2022-10-16 19:40 | NUR ---
COVID SWAB DONE AND SENT TO LAB
[2022-10-16 19:48] LABS: ABG BASE EXCESS 2.4 mmol/L; ABG PCO2 44.7 mmHg (35.0-45.0); ABG PH 7.408 (7.350-7.450); ABG PO2 268.2 mmHg (75.0-100.0); COHb 0.3 % (0.5-1.5); MetHb 0.3 % (0.0-1.5); O2Hb 98.6 % (94.0-97.0); SITE, ABG Left Radial; VENT MODE, BG 10 NRB
[2022-10-16 19:51] LABS: BASOPHILS # (AUTO) 0.1 K/uL (0.0-0.2); BASOPHILS % (AUTO) 0.9 % (0.0-2.0); HEMATOCRIT 36 % (33-45); HEMOGLOBIN 11.7 g/dL (11.5-14.8); LYMPHOCYTES # (AUTO) 1.1 K/uL (0.8-4.8); LYMPHOCYTES % (AUTO) 7.4 % (20.0-44.0); MEAN CORPUSCULAR HGB CONC 33 g/dl (31.0-36.0); MEAN CORPUSCULAR VOLUME 89 fL (82-100); MONOCYTES # (AUTO) 1.2 K/uL (0.1-1.30); MONOCYTES % (AUTO) 8.5 % (2.0-12.0); NEUTROPHILS # (AUTO) 12.1 K/uL (1.8-8.9); NEUTROPHILS % (AUTO) 82.2 % (43.0-81.0); PLATELET COUNT (AUTO) 353 K/uL (150-450); RED BLOOD CELL COUNT(AUTO) 4.03 MIL/uL (4.0-5.2); WHITE BLOOD COUNT (AUTO) 14.8 K/uL (4.3-11.0)
[2022-10-16] MEDS ORDERED: ALBUTEROL FS 2.5 MG/3 ML VIAL.NEB ONE (19:55)
[2022-10-16] MEDS ORDERED: IPRATROPIUM NEB FS 0.5 MG/2.5 ML AMPUL.NEB ONE (19:55)
[2022-10-16 19:59] LABS: ALANINE AMINOTRANSFERASE 23 U/L (12-78); ALBUMIN 3.4 g/dL (3.4-5.0); ALKALINE PHOSPHATASE 75 U/L (46-116); ASPARTATE AMINOTRANSFERASE 23 U/L (15-37); BILIRUBIN,DIRECT 0.1 mg/dL (0.0-0.2); BILIRUBIN,TOTAL 0.5 mg/dL (0.2-1.0); CALCIUM, SERUM 8.7 mg/dL (8.5-10.1); CARBON DIOXIDE 30 mmol/L (21-32); CHLORIDE 101 mmol/L (98-107); CREATININE 1.1 mg/dL (0.6-1.3); GLUCOSE 133 mg/dL (74-106); POTASSIUM 3.2 mmol/L (3.5-5.1); SODIUM SERUM 137 mmol/L (136-145); TOTAL PROTEIN, SERUM 6.8 g/dL (6.4-8.2); UREA NITROGEN, BLOOD 17 mg/dL (7-18)
[2022-10-16] MEDS ORDERED: IPRATROPIUM NEB FS 0.5 MG/2.5 ML AMPUL.NEB NEB ONE (20:30)
[2022-10-16] MEDS ORDERED: ALBUTEROL FS 2.5 MG/0.5 ML VIAL.NEB NEB ONE (20:30)
[2022-10-16] MEDS ORDERED: FUROSEMIDE 40 MG/4 ML VIAL IV ONE (21:30)
[2022-10-16] MEDS ORDERED: FUROSEMIDE 40 MG/4 ML VIAL ONE (22:07)
[2022-10-16] MEDS ORDERED: ALBUTEROL FS 2.5 MG/0.5 ML VIAL.NEB NEB PRN (22:30)
[2022-10-16] MEDS ORDERED: MORPHINE SULFATE INJ 2 MG/ML DISP.SYRIN IV PRN (22:30)
[2022-10-16] MEDS ORDERED: ONDANSETRON HCL/PF 4 MG/2 ML VIAL IVP PRN (22:30)
[2022-10-16] MEDS ORDERED: hydrALAZINE HCL IV 20 MG VIAL IV PRN (22:30)
[2022-10-16] MEDS ORDERED: Z GUARD REMEDY 4 OZ OINT TP PRN (22:30)
[2022-10-16] MEDS ORDERED: ACETAMINOPHEN 325 MG TABLET PO PRN (22:30)
--- NOTE | 2022-10-16 23:41 | NUR ---
tele [phone]
[2022-10-17] MEDS ORDERED: IPRATROPIUM/ALBUTEROL INHALER IH SCH
--- NOTE | 2022-10-17 00:02 | NUR ---
report given to micah cueto
--- NOTE | 2022-10-17 00:31 | NUR ---
pt transported to 3rd floor
[2022-10-17] MEDS ORDERED: CEFEPIME 2 GM in IV D5W 100 ML IV ONE (01:00)
--- NOTE | 2022-10-17 01:25 | NUR ---
RN NOTE PT HAS ORDER FOR IV CEFEPIME NOT AVAILABLE ONT HE FLOOR. ORDER FAXED TO [employer] YARD ATTENDANT AND ALSO CALLED TO CONFIRM IT WAS RECEIVED.AWAITING ANTIBIOTIC.
[2022-10-17 01:30] VITALS: BP 138/76
[2022-10-17 01:40] VITALS: BP 138/76
--- NOTE | 2022-10-17 01:50 | NUR ---
RN NOTE PT A/O X4 IN NO RESPIRATORY DISTRESS OR PAIN AT THIS TIME. PTS SON AT BEDSIDE. PT ON 2L O2 VIA NASAL CANNULA TOLERATING WELL O2 SAT AT 96%. NOTED WITH IV ACCESS ON THE LAC #20G INTACT S/L. PT NOTED WITH NO WOUNDS AT THIS TIME. PT NOTED WITH BILATERAL ANKLE PITTING EDEMA +1. IT INCONTINENT PLACED ON PUREWICK LASIX WAS ADMINISTERED IN THE ER.PT ORIENTED TO UNIT AND ROOM CALL LIGHT WITH REACH. TABLE WITHIN REACH.
[2022-10-17] MEDS: IPRATROPIUM NEB FS 0.5 MG/2.5 ML AMPUL.NEB IH SCH ×4 (01:53→20:09)
[2022-10-17] MEDS: ALBUTEROL FS 2.5 MG/0.5 ML VIAL.NEB NEB SCH ×4 (01:53→20:09)
[2022-10-17] MEDS ORDERED: CEFEPIME 1 GM VIAL ONE (02:07)
[2022-10-17 05:53] LABS: BASOPHILS # (AUTO) 0.1 K/uL (0.0-0.2); BASOPHILS % (AUTO) 1.1 % (0.0-2.0); EOSINOPHILS % (AUTO) 1.3 % (0.0-6.0); HEMATOCRIT 29 % (33-45); HEMOGLOBIN 9.6 g/dL (11.5-14.8); LYMPHOCYTES # (AUTO) 1.1 K/uL (0.8-4.8); LYMPHOCYTES % (AUTO) 16.5 % (20.0-44.0); MEAN CORPUSCULAR HGB CONC 33 g/dl (31.0-36.0); MEAN CORPUSCULAR VOLUME 89 fL (82-100); MONOCYTES # (AUTO) 1.1 K/uL (0.1-1.30); MONOCYTES % (AUTO) 16.3 % (2.0-12.0); NEUTROPHILS # (AUTO) 4.2 K/uL (1.8-8.9); NEUTROPHILS % (AUTO) 64.8 % (43.0-81.0); PLATELET COUNT (AUTO) 256 K/uL (150-450); RED BLOOD CELL COUNT(AUTO) 3.26 MIL/uL (4.0-5.2); WHITE BLOOD COUNT (AUTO) 6.5 K/uL (4.3-11.0)
[2022-10-17 06:27] LABS: ALANINE AMINOTRANSFERASE 13 U/L (12-78); ALBUMIN 2.6 g/dL (3.4-5.0); ALKALINE PHOSPHATASE 54 U/L (46-116); ASPARTATE AMINOTRANSFERASE 18 U/L (15-37); BILIRUBIN,TOTAL 0.5 mg/dL (0.2-1.0); CALCIUM, SERUM 8.3 mg/dL (8.5-10.1); CARBON DIOXIDE 28 mmol/L (21-32); CHLORIDE 104 mmol/L (98-107); CREATININE 1.1 mg/dL (0.6-1.3); GLUCOSE 105 mg/dL (74-106); MAGNESIUM 1.9 mg/dL (1.8-2.4); PHOSPHORUS 3.2 mg/dL (2.5-4.9); SODIUM SERUM 139 mmol/L (136-145); TOTAL PROTEIN, SERUM 5.5 g/dL (6.4-8.2); UREA NITROGEN, BLOOD 16 mg/dL (7-18)
--- NOTE | 2022-10-17 06:31 | NUR ---
RN NOTE PT ASLEEP IN BED NO DISTRESS NOTED AT THIS TIME. PT REMAINS ON 2L OF O2 VIA NASAL CANNULA TOLERATING WELL. PT IS NOT REPORTING PAIN AT THIS TIME. ON TELE MONITOR READING SR WITH PAC AND PAC 80S. PT NEEDS ALL MET. CALL LIGHT WITHIN EACH. TABLE WITHIN REACH.BED ALARM ON HOB ELEVATED. WILL ENODRSE CARE TO DAY SHIFT NURSE.
--- NOTE | 2022-10-17 07:26 | NUR ---
SHOP TECH OPENING NOTE RECEIVED PT AWAKE AND RESTING IN BED. PT IS A/OX4, ABLE TO MAKE NEEDS KNOWN. ON O2 AT 2L/MIN VIA NASAL CANNULA, TOLERATING WELL. NO SOB NOTED. NOT IN ANY SIGN OF RESPIRATORY DISTRESS. ON TELE SALES AND IN HOME DELIVERY SPECIALIST WITH CURRENT READING OF SINUS RHYTHM WITH PVCS AND PACS, HR 82. NO C/O CARDIAC DISTRESS VOICED OUT AT THIS TIME. SAFETY MEASURES IN PLACE: BED IN LOWEST AND LOCKED POSITION, SIDE RAILS UPX2, BED ALARM ON, AND CALL LIGHT WITHIN REACH. WILL CONTINUE TO MONITOR PT.
--- NOTE | 2022-10-17 07:51 | NUR ---
PATIENT FOUND ON R/A DURING AROUND. STABLE AFTER TX WITH SAT OF 99% ON R/A Addendum: 10/17/22 at 0752 by CASSIE YOUNG RT Amended: Links added.
[2022-10-17] MEDS: LEVOTHYROXINE SODIUM 100 MCG TABLET PO SCH (07:56)
[2022-10-17 08:00] VITALS: BP 128/54
[2022-10-17] MEDS: POLYETHYLENE GLYCOL 3350 17 GM POWD.PACK PO SCH (08:42)
[2022-10-17] MEDS: DOCUSATE SODIUM LIQ 100 MG/10 ML UDC PO SCH ×2 (08:43→16:27)
[2022-10-17] MEDS: FUROSEMIDE 40 MG/4 ML VIAL IV SCH ×2 (08:43→16:27)
[2022-10-17] MEDS: AMLODIPINE BESYLATE 5 MG TABLET PO SCH (08:44)
[2022-10-17] MEDS: HEPARIN SODIUM, PORCINE 5000 UNITS/1 ML VIAL SQ SCH ×2 (08:45→20:06)
[2022-10-17] MEDS ORDERED: METO25TA20 PO (09:23)
[2022-10-17 11:10] LABS: EOSINOPHILS % (MANUAL) 3 % (0-4); LYMPHOCYTES % (MANUAL) 17 % (16-48); MONOCYTES % (MANUAL) 11 % (0-11.0); NEUTROPHILS % (MANUAL) 69 (42-76)
[2022-10-17 12:00] VITALS: BP 135/66
[2022-10-17] MEDS ORDERED: POTASSIUM CHLORIDE 20 MEQ TAB.PRT.SR PO ONE (12:00)
[2022-10-17] MEDS ORDERED: POTASSIUM CHLORIDE 20 MEQ POWDER PACKET PO ONE (12:00)
[2022-10-17] MEDS: CEFEPIME 2 GM in IV D5W 100 ML IV SCH (13:01)
[2022-10-17 16:00] VITALS: BP 121/59
--- NOTE | 2022-10-17 18:33 | NUR ---
MARINE CONSULTANT CLOSING NOTE PT AWAKE AND RESTING IN BED. PT IS A/OX4, ABLE TO MAKE NEEDS KNOWN. ON O2 AT 2L/MIN VIA NASAL CANNULA, TOLERATING WELL. NO SOB NOTED. NOT IN ANY SIGN OF RESPIRATORY DISTRESS. ON TELE ENTERTAINMENT DIRECTOR WITH CURRENT READING OF SINUS RHYTHM WITH PVCS AND PACS, HR 95. NO C/O CARDIAC DISTRESS VOICED OUT AT THIS TIME. IV ACCESS IN LAC G #20 INTACT AND PATENT. ALL NEEDS ATTENDED. KEPT CLEAN AND COMFORTABLE AT ALL TIMES. TURNED AND REPOSITIONED Q2HRS AND NEEDED. SAFETY MEASURES IN PLACE: BED IN LOWEST AND LOCKED POSITION, SIDE RAILS UPX2, BED ALARM ON, AND CALL LIGHT WITHIN REACH. WILL ENDORSED TO BINDING CEMENTER FRENCH CORD NURSE FOR CRISTY.
--- NOTE | 2022-10-17 19:30 | NUR ---
SUPERVISOR DOPING OPENING NOTE RECEIVED PATIENT IN BED, WITH HOB ELEVATED, ALERT AND ORIENTED X4. ABLE TO COMMUNICATE NEEDS WITH THE STAFFS. AFEBRILE AND NOT IN ANY FORM OF ACUTE DISTRESS. ON O2 INHALATION VIA NASAL CANNULA AT 2LPM. NO SOB/WHEEZING NOTED. WITH IV ACCESS ON LAC 20G- SL. SAFETY MEASURES IN PLACE. KEPT BED IN LOCKED AND IN LOW POSITION. SIDE RAILS UP X2. ADVISED TO USE THE CALL LIGHT WHEN IN NEED OF ASSISTANCE.
[2022-10-17 20:00] VITALS: BP 132/52
[2022-10-17] MEDS ORDERED: LATANOPROST EYE DROP 0.005% 2.5 ML BOTTLE EACHEYE SCH (22:00)
[2022-10-18] VITALS: BP 136/60
[2022-10-18] MEDS: CEFEPIME 2 GM in IV D5W 100 ML IV SCH ×2 (01:01→14:16)
[2022-10-18] MEDS: IPRATROPIUM NEB FS 0.5 MG/2.5 ML AMPUL.NEB IH SCH ×3 (02:05→13:23)
[2022-10-18] MEDS: ALBUTEROL FS 2.5 MG/0.5 ML VIAL.NEB NEB SCH ×3 (02:05→13:23)
[2022-10-18 05:48] LABS: BASOPHILS # (AUTO) 0.1 K/uL (0.0-0.2); BASOPHILS % (AUTO) 1.1 % (0.0-2.0); EOSINOPHILS % (AUTO) 4.4 % (0.0-6.0); HEMATOCRIT 31 % (33-45); HEMOGLOBIN 10.2 g/dL (11.5-14.8); LYMPHOCYTES # (AUTO) 0.6 K/uL (0.8-4.8); MEAN CORPUSCULAR HGB CONC 33 g/dl (31.0-36.0); MEAN CORPUSCULAR VOLUME 89 fL (82-100); MONOCYTES # (AUTO) 0.9 K/uL (0.1-1.30); MONOCYTES % (AUTO) 14.6 % (2.0-12.0); NEUTROPHILS # (AUTO) 4.3 K/uL (1.8-8.9); NEUTROPHILS % (AUTO) 69.9 % (43.0-81.0); PLATELET COUNT (AUTO) 241 K/uL (150-450); RED BLOOD CELL COUNT(AUTO) 3.42 MIL/uL (4.0-5.2); WHITE BLOOD COUNT (AUTO) 6.2 K/uL (4.3-11.0)
--- NOTE | 2022-10-18 06:30 | NUR ---
RAILROAD HAND CLOSING NOTE PATIENT IN BED, WITH HOB ELEVATED, ASLEEP BUT EASY TO AROUSE AND RESPONSIVE. ABLE TO COMMUNICATE NEEDS WITH THE STAFFS. AFEBRILE AND NOT IN ANY FORM OF ACUTE DISTRESS. ON O2 INHALATION VIA NASAL CANNULA AT 2LPM. NO SOB/WHEEZING NOTED. ON TELE MONITORING WITH CURRENT READING OF SR WITH PAC 74. WITH IV ACCESS ON LAC 20G- SL. MEDICATED ORDERED. ON IV ATB, MONITORED FOR ANY ADVERSE REACTION. SAFETY MEASURES IN PLACE. KEPT BED IN LOCKED AND IN LOW POSITION. SIDE RAILS UP X2. ADVISED TO USE THE CALL LIGHT WHEN IN NEED OF ASSISTANCE. ALL NURSING NEEDS ATTENDED. ENDORSED TO INCOMING SHIFT FOR CONTINUITY OF CARE.
[2022-10-18 06:47] LABS: CALCIUM, SERUM 8.4 mg/dL (8.5-10.1); POTASSIUM 3.6 mmol/L (3.5-5.1)
[2022-10-18 06:48] LABS: MAGNESIUM 1.9 mg/dL (1.8-2.4)
--- NOTE | 2022-10-18 07:46 | NUR ---
LOCAL INTERMODAL TRUCK DRIVER OPENING NOTE RECEIVED PT AWAKE AND RESTING IN BED. PT IS A/OX4, ABLE TO MAKE NEEDS KNOWN. ON ROOM AIR, O2 Sat = 97%. NO SOB NOTED. NOT IN ANY SIGN OF RESPIRATORY DISTRESS. ON TELE AERIAL PLANTING AND CULTIVATION MANAGER WITH CURRENT READING OF SINUS RHYTHM WITH PACS, HR IN 80s. NO C/O CARDIAC DISTRESS VOICED AT THIS TIME. SAFETY MEASURES IN PLACE: BED IN LOWEST AND LOCKED POSITION, SIDE RAILS UPX2, BED ALARM ON, AND CALL LIGHT WITHIN REACH. WILL CONTINUE TO MONITOR PT.
[2022-10-18 08:00] VITALS: BP 126/50
[2022-10-18] MEDS: LEVOTHYROXINE SODIUM 100 MCG TABLET PO SCH (08:03)
[2022-10-18] MEDS: FUROSEMIDE 40 MG/4 ML VIAL IV SCH (08:12)
[2022-10-18] MEDS: POLYETHYLENE GLYCOL 3350 17 GM POWD.PACK PO SCH (08:13)
[2022-10-18] MEDS: DOCUSATE SODIUM LIQ 100 MG/10 ML UDC PO SCH (08:13)
[2022-10-18] MEDS: HEPARIN SODIUM, PORCINE 5000 UNITS/1 ML VIAL SQ SCH (08:18)
[2022-10-18] MEDS: AMLODIPINE BESYLATE 5 MG TABLET PO SCH (08:19)
[2022-10-18 12:00] VITALS: BP 116/56
[2022-10-18] MEDS ORDERED: POTA-10 PO (14:28)
[2022-10-18] MEDS ORDERED: BUME1TAB9 PO (14:28)
--- NOTE | 2022-10-18 16:40 | NUR ---
[employer] INVENTORY CLERK NOTE Patient's IV catheter removed fully intact without complications. Telemetry leads monitor removed. Patient's vital signs were stable, afebrile. Patient demonstrated understanding of home care discharge instructions with teach back in her own words method. Patient departed hospital via wheelchair with her son to private car bound for home at 16:37 hours.
== END 2022-10-18 16:32 | disposition home health service (06) | DRG 291 ==
LOC: ER 18:55 → TELE 23:43
PROVIDERS: ADMIT Internal Medicine; ATTEND Nurse Practitioner Acute Care
DX: I11.0 Hypertensive heart disease with heart failure (principal); I50.33 Acute on chronic diastolic (congestive) heart failure; J96.21 Acute and chronic respiratory failure with hypoxia; Z20.822 Contact with and (suspected) exposure to COVID-19; J44.9 Chronic obstructive pulmonary disease, unspecified; Z79.899 Other long term (current) drug therapy; E87.6 Hypokalemia; D72.829 Elevated white blood cell count, unspecified; E03.9 Hypothyroidism, unspecified; E66.9 Obesity, unspecified; Z68.26 Body mass index [BMI] 26.0-26.9, adult; Z86.19 Personal history of other infectious and parasitic diseases
CPT/HCPCS: 36415; 36600; 71045-TC; 80048-TC; 80053-TC; 80076-TC; 82803-TC; 83605-TC; 83735-TC; 83880; 84100-TC; 84484-TC; 85025-TC; 87081-TC; 94799-TC; C9803; G0378; J0692; J1644; J1940; J7050; J7060

== ENCOUNTER 2023-05-19 20:23 | Inpatient (IN) | payer BC ==
[~2023-05-19] VITALS: Ht 165.1 cm; Wt 68.0 kg
[~2023-05-19 20:23] MED LIST changes: +BUME1TAB9 PO; +METO25TA20 PO; +POTA-10 PO
[2023-05-19] MEDS ORDERED: FUROSEMIDE 40 MG/4 ML VIAL ONE (20:44)
[2023-05-19] MEDS ORDERED: NITROGLYCERIN PACKET 1 GM PACKET ONE (20:44)
[2023-05-19] MEDS ORDERED: NITROGLYCERIN PACKET 1 GM PACKET TOP ONE (21:00)
[2023-05-19] MEDS ORDERED: FUROSEMIDE 40 MG/4 ML VIAL IV ONE (21:00)
[2023-05-19 21:08] LABS: BASOPHILS # (AUTO) 0.2 K/uL (0.0-0.2); EOSINOPHILS # (AUTO) 0.4 K/uL (0.0-0.7); EOSINOPHILS % (AUTO) 1.8 % (0.0-6.0); HEMATOCRIT 30 % (33-45); LYMPHOCYTES # (AUTO) 2.1 K/uL (0.8-4.8); LYMPHOCYTES % (AUTO) 10.4 % (20.0-44.0); MEAN CORPUSCULAR HEMOGLOBIN 28 PG (26.0-33.0); MEAN CORPUSCULAR HGB CONC 30 g/dl (31.0-36.0); MEAN CORPUSCULAR VOLUME 91 fL (82-100); MONOCYTES # (AUTO) 1.6 K/uL (0.1-1.30); MONOCYTES % (AUTO) 7.6 % (2.0-12.0); NEUTROPHILS # (AUTO) 16.3 K/uL (1.8-8.9); NEUTROPHILS % (AUTO) 79.2 % (43.0-81.0); PLATELET COUNT (AUTO) 517 K/uL (150-450); RED BLOOD CELL COUNT(AUTO) 3.27 MIL/uL (4.0-5.2); RED CELL DISTRIBUTION WIDTH 16.9 % (11.5-15.0); WHITE BLOOD COUNT (AUTO) 20.5 K/uL (4.3-11.0)
[2023-05-19 21:24] LABS: CALCIUM, SERUM 8.9 mg/dL (8.5-10.1); CARBON DIOXIDE 25 mmol/L (21-32); CHLORIDE 108 mmol/L (98-107); CREATININE 0.8 mg/dL (0.6-1.3); GLUCOSE 154 mg/dL (74-106); POTASSIUM 3.6 mmol/L (3.5-5.1); SODIUM SERUM 141 mmol/L (136-145); UREA NITROGEN, BLOOD 15 mg/dL (7-18)
[2023-05-19] MEDS ORDERED: Magnesium 1 GM/2 ML VIAL ONE (21:26)
[2023-05-19] MEDS ORDERED: methylPREDNISolone SOD SUCC 125 MG/2ML VIAL ONE (21:26)
[2023-05-19] MEDS ORDERED: Magnesium 1GM/D5W 100ML PREMIX 200 ML IV ONE (21:29)
[2023-05-19] MEDS ORDERED: methylPREDNISolone SOD SUCC 125 MG/2ML VIAL IV ONE (21:30)
[2023-05-19] MEDS ORDERED: Magnesium 1 GM/2 ML VIAL IV ONE (21:30)
[2023-05-19] MEDS ORDERED: IPRATROPIUM NEB FS 0.5 MG/2.5 ML AMPUL.NEB NEB ONE (21:30)
[2023-05-19] MEDS ORDERED: ALBUTEROL FS 2.5 MG/0.5 ML VIAL.NEB NEB ONE (21:30)
[2023-05-19 21:41] LABS: ALANINE AMINOTRANSFERASE 15 U/L (12-78); ALBUMIN 3.3 g/dL (3.4-5.0); ALKALINE PHOSPHATASE 85 U/L (46-116); ASPARTATE AMINOTRANSFERASE 11 U/L (15-37); BILIRUBIN,DIRECT 0.1 mg/dL (0.0-0.2); BILIRUBIN,TOTAL 0.3 mg/dL (0.2-1.0); NT-PRO BNP 1131 pg/mL (0-125); TOTAL PROTEIN, SERUM 6.4 g/dL (6.4-8.2)
[2023-05-19] MEDS ORDERED: ALBUTEROL FS 2.5 MG/0.5 ML VIAL.NEB ONE (21:52)
[2023-05-19] MEDS ORDERED: IPRATROPIUM NEB FS 0.5 MG/2.5 ML AMPUL.NEB ONE (21:52)
[2023-05-19 21:55] VITALS: O2SAT 97
[2023-05-19 22:10] VITALS: O2SAT 99
[2023-05-19 22:15] VITALS: O2SAT 99
[2023-05-19 22:30] VITALS: O2SAT 100
[2023-05-20] VITALS: BP_SYST 106; BP_SYST 110; BP_DIAS 51; BP_DIAS 67; TEMP 97.9; O2SAT 95; O2SAT 96
[2023-05-20] MEDS ORDERED: ONDANSETRON HCL/PF 4 MG/2 ML VIAL IVP PRN
[2023-05-20] MEDS ORDERED: ACETAMINOPHEN 325 MG TABLET PO PRN
[2023-05-20] MEDS ORDERED: DOXYCYCLINE 100 MG in IV D5W 100 ML IV ONE (00:30)
[2023-05-20] MEDS ORDERED: CEFTRIAXONE 1 G in IV D5W 50 ML IV ONE (00:30)
[2023-05-20 00:41] LABS: APPEARANCE,URINE CLOUDY (CLEAR); BILIRUBIN,URINE NEGATIVE (NEGATIVE); BLOOD, URINE 1+ Ery/uL (NEGATIVE); COLOR,URINE YELLOW (YELLOW); KETONES,URINE NEGATIVE (NEGATIVE); LEUKOCYTE ESTERASE ,URINE 3+ (NEGATIVE); NITRITE, URINE POSITIVE (NEGATIVE); PH,URINE 5.5 (5.0-8.0); PROTEIN,URINE NEGATIVE (NEGATIVE); UGLUCOSE NEGATIVE (NEGATIVE); UROBILINOGEN,URINE 0.2 EU/dL (0.2)
[2023-05-20 00:43] LABS: ADD URINE CULTURE YES; BACTERIA,URINE MANY /HPF (None Seen); SQUAMOUS EPITHELIAL CELL,UR Rare /HPF (None Seen); WBC,URINE 21-50 /HPF (0-3)
[2023-05-20] MEDS ORDERED: CEFTRIAXONE 1GM BAG (ER ONLY) 50 ML IV ONE (00:59)
[2023-05-20] MEDS ORDERED: DOXYCYCLINE 100 MG VIAL ONE (01:00)
[2023-05-20 01:42] LABS: BASOPHILS % (MANUAL) 0 % (0.0-2.0); EOSINOPHILS % (MANUAL) 3 % (0-4); LYMPHOCYTES % (MANUAL) 9 % (16-48); MONOCYTES % (MANUAL) 7 % (0-11.0); NEUTROPHILS % (MANUAL) 81 (42-76); PLATELET ESTIMATE ADEQUATE
[2023-05-20 01:43] LABS: ANISOCYTOSIS 1+
[2023-05-20 05:54] LABS: BASOPHILS % (AUTO) 0.2 % (0.0-2.0); HEMATOCRIT 25 % (33-45); HEMOGLOBIN 7.8 g/dL (11.5-14.8); LYMPHOCYTES # (AUTO) 0.4 K/uL (0.8-4.8); LYMPHOCYTES % (AUTO) 4.1 % (20.0-44.0); MEAN CORPUSCULAR HEMOGLOBIN 28 PG (26.0-33.0); MEAN CORPUSCULAR HGB CONC 31 g/dl (31.0-36.0); MEAN CORPUSCULAR VOLUME 90 fL (82-100); MONOCYTES # (AUTO) 0.1 K/uL (0.1-1.30); MONOCYTES % (AUTO) 1.6 % (2.0-12.0); NEUTROPHILS # (AUTO) 8.4 K/uL (1.8-8.9); NEUTROPHILS % (AUTO) 94.1 % (43.0-81.0); PLATELET COUNT (AUTO) 380 K/uL (150-450); RED BLOOD CELL COUNT(AUTO) 2.79 MIL/uL (4.0-5.2); RED CELL DISTRIBUTION WIDTH 16.3 % (11.5-15.0); WHITE BLOOD COUNT (AUTO) 8.9 K/uL (4.3-11.0)
[2023-05-20 06:06] LABS: CALCIUM, SERUM 8.7 mg/dL (8.5-10.1); CREATININE 0.7 mg/dL (0.6-1.3); PHOSPHORUS 3.9 mg/dL (2.5-4.9); POTASSIUM 3.8 mmol/L (3.5-5.1)
[2023-05-20 08:37] VITALS: O2SAT 98
[2023-05-20] MEDS ORDERED: BUMETANIDE (1 MG) 1 MG TABLET PO SCH (09:00)
[2023-05-20] MEDS: LEVOTHYROXINE SODIUM 100 MCG TABLET PO SCH (10:59)
[2023-05-20] MEDS: AMLODIPINE BESYLATE 5 MG TABLET PO SCH (10:59)
[2023-05-20] MEDS: FUROSEMIDE 40 MG/4 ML VIAL IV SCH (10:59)
[2023-05-20] MEDS: METOPROLOL TARTRATE 25 MG TABLET PO SCH (11:02)
[2023-05-20 11:37] VITALS: BP 129/61; TEMP 98.2
[2023-05-20 12:00] VITALS: BP 129/62; TEMP 97.9; O2SAT 99
[2023-05-20] MEDS: NITROGLYCERIN PACKET 1 GM PACKET TOP SCH ×2 (12:15→20:56)
[2023-05-20] MEDS: ENOXAPARIN SODIUM 40 MG/0.4 ML DISP.SYRIN SQ SCH (12:31)
[2023-05-20 16:00] VITALS: BP 109/51; TEMP 98.1; O2SAT 96
[2023-05-20] MEDS: LATANOPROST EYE DROP 0.005% 2.5 ML BOTTLE EACHEYE SCH (21:23)
[2023-05-21] VITALS: BP_SYST 113; BP_SYST 121; BP_DIAS 52; BP_DIAS 54; TEMP 97.9; TEMP 98.1; O2SAT 98; O2SAT 99
[2023-05-21] MEDS: CEFTRIAXONE 1 G in IV D5W 50 ML IV SCH (00:48)
[2023-05-21 04:00] VITALS: BP 132/58; TEMP 97.7; O2SAT 99
[2023-05-21 08:00] VITALS: BP 128/50; TEMP 98; O2SAT 98
[2023-05-21] MEDS: LEVOTHYROXINE SODIUM 100 MCG TABLET PO SCH (08:09)
[2023-05-21 08:10] LABS: BASOPHILS # (AUTO) 0.1 K/uL (0.0-0.2); BASOPHILS % (AUTO) 0.4 % (0.0-2.0); EOSINOPHILS # (AUTO) 0.2 K/uL (0.0-0.7); EOSINOPHILS % (AUTO) 1.6 % (0.0-6.0); HEMATOCRIT 25 % (33-45); HEMOGLOBIN 7.6 g/dL (11.5-14.8); LYMPHOCYTES # (AUTO) 0.9 K/uL (0.8-4.8); MEAN CORPUSCULAR HEMOGLOBIN 28 PG (26.0-33.0); MEAN CORPUSCULAR HGB CONC 30 g/dl (31.0-36.0); MEAN CORPUSCULAR VOLUME 91 fL (82-100); MONOCYTES # (AUTO) 1.1 K/uL (0.1-1.30); MONOCYTES % (AUTO) 8.9 % (2.0-12.0); NEUTROPHILS # (AUTO) 10.3 K/uL (1.8-8.9); NEUTROPHILS % (AUTO) 82.1 % (43.0-81.0); PLATELET COUNT (AUTO) 382 K/uL (150-450); RED BLOOD CELL COUNT(AUTO) 2.73 MIL/uL (4.0-5.2); RED CELL DISTRIBUTION WIDTH 16.6 % (11.5-15.0); WHITE BLOOD COUNT (AUTO) 12.6 K/uL (4.3-11.0)
[2023-05-21 08:28] LABS: CALCIUM, SERUM 8.5 mg/dL (8.5-10.1); CREATININE 0.7 mg/dL (0.6-1.3); POTASSIUM 3.6 mmol/L (3.5-5.1)
[2023-05-21] MEDS: FUROSEMIDE 40 MG/4 ML VIAL IV SCH (08:49)
[2023-05-21] MEDS: AMLODIPINE BESYLATE 5 MG TABLET PO SCH (08:50)
[2023-05-21] MEDS: NITROGLYCERIN PACKET 1 GM PACKET TOP SCH ×2 (08:51→21:44)
[2023-05-21] MEDS: METOPROLOL TARTRATE 25 MG TABLET PO SCH (08:51)
[2023-05-21] MEDS: ENOXAPARIN SODIUM 40 MG/0.4 ML DISP.SYRIN SQ SCH (09:02)
[2023-05-21 12:00] VITALS: BP 106/54; TEMP 98; O2SAT 97
[2023-05-21 16:00] VITALS: BP 114/54; TEMP 98.3; O2SAT 98
[2023-05-21 20:00] VITALS: BP 123/43; TEMP 97.9; O2SAT 93
[2023-05-21] MEDS: LATANOPROST EYE DROP 0.005% 2.5 ML BOTTLE EACHEYE SCH (21:53)
[2023-05-22] VITALS: BP 113/50; TEMP 97.8; O2SAT 99
[2023-05-22] MEDS: CEFTRIAXONE 1 G in IV D5W 50 ML IV SCH (01:32)
[2023-05-22 04:00] VITALS: BP 121/52; TEMP 98.1; O2SAT 99
[2023-05-22 06:31] LABS: BASOPHILS # (AUTO) 0.1 K/uL (0.0-0.2); BASOPHILS % (AUTO) 0.8 % (0.0-2.0); EOSINOPHILS # (AUTO) 0.3 K/uL (0.0-0.7); EOSINOPHILS % (AUTO) 3.8 % (0.0-6.0); HEMATOCRIT 24 % (33-45); HEMOGLOBIN 7.4 g/dL (11.5-14.8); LYMPHOCYTES # (AUTO) 0.9 K/uL (0.8-4.8); LYMPHOCYTES % (AUTO) 11.3 % (20.0-44.0); MEAN CORPUSCULAR HEMOGLOBIN 28 PG (26.0-33.0); MEAN CORPUSCULAR HGB CONC 32 g/dl (31.0-36.0); MEAN CORPUSCULAR VOLUME 90 fL (82-100); MONOCYTES # (AUTO) 0.8 K/uL (0.1-1.30); MONOCYTES % (AUTO) 10.2 % (2.0-12.0); NEUTROPHILS # (AUTO) 5.8 K/uL (1.8-8.9); NEUTROPHILS % (AUTO) 73.9 % (43.0-81.0); PLATELET COUNT (AUTO) 333 K/uL (150-450); RED BLOOD CELL COUNT(AUTO) 2.63 MIL/uL (4.0-5.2); RED CELL DISTRIBUTION WIDTH 16.1 % (11.5-15.0); WHITE BLOOD COUNT (AUTO) 7.8 K/uL (4.3-11.0)
[2023-05-22 07:00] VITALS: BP 122/55; TEMP 98; O2SAT 95
[2023-05-22 07:01] LABS: CALCIUM, SERUM 8.7 mg/dL (8.5-10.1); CREATININE 0.7 mg/dL (0.6-1.3); POTASSIUM 3.4 mmol/L (3.5-5.1)
[2023-05-22] MEDS: LEVOTHYROXINE SODIUM 100 MCG TABLET PO SCH (07:33)
[2023-05-22] MEDS: METOPROLOL TARTRATE 25 MG TABLET PO SCH (09:08)
[2023-05-22] MEDS: AMLODIPINE BESYLATE 5 MG TABLET PO SCH (09:08)
[2023-05-22] MEDS: FUROSEMIDE 40 MG/4 ML VIAL IV SCH (09:09)
[2023-05-22] MEDS: NITROGLYCERIN PACKET 1 GM PACKET TOP SCH (09:09)
[2023-05-22] MEDS: ENOXAPARIN SODIUM 40 MG/0.4 ML DISP.SYRIN SQ SCH (09:13)
[2023-05-22] MEDS ORDERED: POTASSIUM CHLORIDE 20 MEQ TAB.PRT.SR PO SCH (11:00)
[2023-05-22 12:00] VITALS: BP 123/52; TEMP 97.5; O2SAT 100
== END 2023-05-22 14:00 | disposition home health service (06) | DRG 189 ==
LOC: ER 20:25 → TELE 05-20 08:57
PROVIDERS: ADMIT Nurse Practitioner Acute Care; ATTEND Internal Medicine
PROC: 5A09357 Assistance with Respiratory Ventilation, Less than 24 Consecutive Hours, Continuous Positive Airway Pressure (ICD-10-PCS; principal; 2023-05-20)
DX: J96.21 Acute and chronic respiratory failure with hypoxia (principal); I50.33 Acute on chronic diastolic (congestive) heart failure; N39.0 Urinary tract infection, site not specified; E44.1 Mild protein-calorie malnutrition; J98.11 Atelectasis; J90 Pleural effusion, not elsewhere classified; I11.0 Hypertensive heart disease with heart failure; E03.9 Hypothyroidism, unspecified; Z79.899 Other long term (current) drug therapy; E88.09 Other disorders of plasma-protein metabolism, not elsewhere classified; D64.9 Anemia, unspecified
CPT/HCPCS: 36415; 71045-TC; 71250-TC; 80048-TC; 80076-TC; 81001; 83735-TC; 83880; 84100-TC; 84484-TC; 85025-TC; 87086-TC; 93307-TC; 97112-TC; 97116-TC; 97530-TC; A4223; G0378; J0696; J1650; J1940; J2930; J3475; J3490; J7040; J7060

== ENCOUNTER 2024-11-14 14:22 | Inpatient (IN) | payer BC ==
[~2024-11-14] VITALS: Ht 160 cm; Wt 64.6 kg
[2024-11-14] MEDS: IV NS 0.9% 500 ML BAG IV ONE ×2 (15:04→16:35)
[2024-11-14 15:06] LABS: BASOPHILS # (AUTO) 0.2 K/uL (0.0-0.2); BASOPHILS % (AUTO) 1.1 % (0.0-2.0); EOSINOPHILS % (AUTO) 0.3 % (0.0-6.0); HEMATOCRIT 27 % (33-45); HEMOGLOBIN 8.4 g/dL (11.5-14.8); LYMPHOCYTES # (AUTO) 0.5 K/uL (0.8-4.8); LYMPHOCYTES % (AUTO) 2.9 % (20.0-44.0); MEAN CORPUSCULAR HEMOGLOBIN 17 PG (26.0-33.0); MEAN CORPUSCULAR HGB CONC 31 g/dl (31.0-36.0); MEAN CORPUSCULAR VOLUME 57 fL (82-100); MONOCYTES # (AUTO) 1.1 K/uL (0.1-1.30); MONOCYTES % (AUTO) 7.1 % (2.0-12.0); NEUTROPHILS # (AUTO) 14.2 K/uL (1.8-8.9); NEUTROPHILS % (AUTO) 88.6 % (43.0-81.0); PLATELET COUNT (AUTO) 423 K/uL (150-450); RED BLOOD CELL COUNT(AUTO) 4.82 MIL/uL (4.0-5.2); RED CELL DISTRIBUTION WIDTH 18.6 % (11.5-15.0)
[2024-11-14] MEDS: ACETAMINOPHEN ES 500 MG TABLET PO ONE (15:06)
[2024-11-14 15:25] LABS: CALCIUM, SERUM 9.1 mg/dL (8.5-10.1); CARBON DIOXIDE 34 mmol/L (21-32); CHLORIDE 96 mmol/L (98-107); CREATININE 1.5 mg/dL (0.6-1.3); GLUCOSE 156 mg/dL (74-106); SODIUM SERUM 137 mmol/L (136-145); UREA NITROGEN, BLOOD 39 mg/dL (7-18)
[2024-11-14 15:33] LABS: ALANINE AMINOTRANSFERASE 16 U/L (12-78); ALKALINE PHOSPHATASE 83 U/L (46-116); ASPARTATE AMINOTRANSFERASE 20 U/L (15-37); BILIRUBIN,DIRECT 0.3 mg/dL (0.0-0.2); BILIRUBIN,TOTAL 0.8 mg/dL (0.2-1.0); TOTAL PROTEIN, SERUM 7.1 g/dL (6.4-8.2)
[2024-11-14 15:35] LABS: POTASSIUM 2.7 mmol/L (3.5-5.1)
[2024-11-14 15:45] LABS: INR 1.09 (0.91-1.10); PROTHROMBIN TIME 11.5 SECS (9.2-11.1)
[2024-11-14 15:51] LABS: LACTIC ACID 3.1 mmol/L (0.4-2.0)
[2024-11-14 16:20] LABS: APPEARANCE,URINE CLOUDY (CLEAR)
[2024-11-14 16:21] LABS: COLOR,URINE YELLOW (YELLOW); UGLUCOSE NEGATIVE (NEGATIVE)
[2024-11-14 16:22] LABS: BILIRUBIN,URINE NEGATIVE (NEGATIVE); BLOOD, URINE TRACE Ery/uL (NEGATIVE); KETONES,URINE NEGATIVE (NEGATIVE)
[2024-11-14 16:23] LABS: LEUKOCYTE ESTERASE ,URINE 2+ (NEGATIVE); NITRITE, URINE NEGATIVE (NEGATIVE); PROTEIN,URINE 1+ mg/dl (NEGATIVE); UROBILINOGEN,URINE 0.2 EU/dL (0.2)
[2024-11-14 16:25] LABS: TRIPLE PHOSPHATE CRYSTAL,UR Few /HPF (None Seen); URINE AMORPHOUS PHOSPHATES Many /HPF (None Seen)
[2024-11-14 16:26] LABS: ADD URINE CULTURE YES; BACTERIA,URINE 3+ /HPF (None Seen); WBC,URINE 21-50 /HPF (0-3)
[2024-11-14 16:30] LABS: ANISOCYTOSIS 1+; LYMPHOCYTES % (MANUAL) 5 % (16-48); MONOCYTES % (MANUAL) 5 % (0-11.0); NEUTROPHILS % (MANUAL) 90 (42-76); PLATELET ESTIMATE ADEQUATE
[2024-11-14 16:31] LABS: OVALOCYTES 1+
[2024-11-14] MEDS ORDERED: PANT40TA2 PO (16:50)
[2024-11-14] MEDS ORDERED: BRIN8DRO2 EACHEYE (16:50)
[2024-11-14] MEDS ORDERED: LEVO75TA PO (16:50)
[2024-11-14] MEDS ORDERED: APIX5TAB PO (16:50)
[2024-11-14] MEDS ORDERED: POTA-10 PO (16:50)
[2024-11-14] MEDS ORDERED: METO5TAB7 PO (16:50)
[2024-11-14] MEDS ORDERED: BUME1TAB34 PO (16:50)
[2024-11-14] MEDS: PIPERACILLIN /TAZOBACTAM 3.375 G in IV D5W 50 ML IV ONE (17:01)
[2024-11-14] MEDS: POTASSIUM CL. PREMIX PERIPHER. 50 ML IV SCH (17:18)
[2024-11-14] MEDS ORDERED: ACETAMINOPHEN 325 MG TABLET PO PRN (19:00)
[2024-11-14] MEDS ORDERED: ONDANSETRON HCL/PF 4 MG/2 ML VIAL IVP PRN (19:00)
[2024-11-14 19:59] LABS: IRON, SERUM 7 ug/dl (50-175); TOTAL IRON BINDING CAPACITY 398 ug/dl (250-450)
[2024-11-14 20:12] LABS: FERRITIN 15 ng/mL (8-388)
[2024-11-14] MEDS: IV NS 0.9% 1,000 ML IV PRN (22:15)
[2024-11-14] MEDS: CEFTRIAXONE 1 G in IV D5W 50 ML IV SCH (22:15)
[2024-11-15] VITALS (10 sets, daily range): BP systolic 101–137; BP diastolic 51–85; TEMP 97.7–98.1; O2SAT 95–100
[2024-11-15] MEDS ORDERED: PIPERACILLIN /TAZOBACTAM 3.375 G in IV D5W 50 ML IV ONE
[2024-11-15] MEDS: ONDANSETRON HCL/PF 4 MG/2 ML VIAL IV PRN (02:59)
[2024-11-15] MEDS: AMIODARONE 150 MG/3 ML VIAL IV ONE (03:08)
[2024-11-15] MEDS: AMIODARONE 150 MG in IV D5W 100 ML IV ONE (03:14)
[2024-11-15] MEDS: AMIODARONE 450 MG in IV D5W 241 ML IV PRN (03:23)
[2024-11-15 03:40] LABS: HEMOGLOBIN 8.5 g/dL (11.5-14.8)
[2024-11-15 04:06] LABS: ABG BASE EXCESS -5.8 mmol/L (-2.0-3.0); ABG OXYGEN SATURATION 95.2 % (94.0-98.0); ABG PCO2 38.5 mmHg (32.0-45.0); ABG PH 7.327 (7.350-7.450); ABG PO2 91.6 mmHg (83.0-108.0); MetHb 0.2 % (0.0-1.5); O2Hb 94.1 % (94.0-97.0); SITE, ABG LEFT RADIAL
[2024-11-15 04:24] LABS: HEMOGLOBIN 7.9 g/dL (11.5-14.8)
[2024-11-15 06:22] LABS: BASOPHILS # (AUTO) 0.2 K/uL (0.0-0.2); BASOPHILS % (AUTO) 0.9 % (0.0-2.0); HEMATOCRIT 27 % (33-45); HEMOGLOBIN 7.8 g/dL (11.5-14.8); LYMPHOCYTES # (AUTO) 0.4 K/uL (0.8-4.8); LYMPHOCYTES % (AUTO) 1.4 % (20.0-44.0); MEAN CORPUSCULAR HEMOGLOBIN 17 PG (26.0-33.0); MEAN CORPUSCULAR HGB CONC 29 g/dl (31.0-36.0); MEAN CORPUSCULAR VOLUME 59 fL (82-100); MONOCYTES # (AUTO) 1.6 K/uL (0.1-1.30); MONOCYTES % (AUTO) 6.3 % (2.0-12.0); NEUTROPHILS # (AUTO) 23.7 K/uL (1.8-8.9); NEUTROPHILS % (AUTO) 91.4 % (43.0-81.0); PLATELET COUNT (AUTO) 368 K/uL (150-450); RED BLOOD CELL COUNT(AUTO) 4.59 MIL/uL (4.0-5.2); RED CELL DISTRIBUTION WIDTH 18.8 % (11.5-15.0); WHITE BLOOD COUNT (AUTO) 25.9 K/uL (4.3-11.0)
[2024-11-15 06:38] LABS: CALCIUM, SERUM 8.4 mg/dL (8.5-10.1); CREATININE 1.7 mg/dL (0.6-1.3); MAGNESIUM 2.1 mg/dL (1.8-2.4); PHOSPHORUS 4.8 mg/dL (2.5-4.9); POTASSIUM 3.5 mmol/L (3.5-5.1)
[2024-11-15 08:05] LABS: OCCULT BLOOD STOOL NEGATIVE (NEGATIVE)
[2024-11-15] MEDS ORDERED: ENOXAPARIN SODIUM 30 MG/0.3 ML DISP.SYRIN SQ SCH (09:00)
[2024-11-15] MEDS ORDERED: PANTOPRAZOLE 40 MG/PACK PACK GT SCH (10:30)
[2024-11-15] MEDS ORDERED: IPRATROPIUM NEB FS 0.5 MG/2.5 ML AMPUL.NEB NEB PRN (10:30)
[2024-11-15] MEDS ORDERED: ALBUTEROL FS 2.5 MG/3 ML VIAL.NEB NEB PRN (10:30)
[2024-11-15] MEDS: PANTOPRAZOLE 40 MG VIAL IV SCH (14:19)
[2024-11-15] MEDS: PIPERACILLIN /TAZOBACTAM 2.25 G in IV D5W 50 ML IV SCH (14:19)
[2024-11-15 14:56] LABS: HEMOGLOBIN 7.4 g/dL (11.5-14.8)
[2024-11-15] MEDS: VANCOMYCIN HCL 1.25 GM in IV D5W 250 ML IV ONE (15:00)
[2024-11-16] VITALS: BP 113/65; TEMP 97.7; O2SAT 100
[2024-11-16 04:00] VITALS: BP 110/61; TEMP 97.7; O2SAT 100
[2024-11-16 08:00] VITALS: BP 99/55; TEMP 97.9; O2SAT 100
[2024-11-16 12:00] VITALS: BP 105/55; TEMP 98.2; O2SAT 100
[2024-11-16] MEDS: PIPERACILLIN /TAZOBACTAM 3.375 G in IV D5W 100 ML IV SCH (12:16)
[2024-11-16 16:00] VITALS: BP 119/61; TEMP 97.8; O2SAT 100
[2024-11-16] MEDS: VANCOMYCIN 500 MG in IV D5W 100ml IV SCH (16:19)
[2024-11-16 16:34] LABS: CALCIUM, SERUM 8.2 mg/dL (8.5-10.1); CREATININE 1.1 mg/dL (0.6-1.3)
[2024-11-16 16:42] LABS: POTASSIUM 2.8 mmol/L (3.5-5.1)
[2024-11-16] MEDS ORDERED: POTASSIUM CHLORIDE 10 MEQ/50 ML PREMIXED IVPB FOR PERIPHERAL LINE IV ONE (17:00)
[2024-11-16] MEDS: POTASSIUM CL. PREMIX PERIPHER. 50 ML IV SCH (17:17)
[2024-11-16 17:30] LABS: BASOPHILS # (AUTO) 0.1 K/uL (0.0-0.2); BASOPHILS % (AUTO) 1.3 % (0.0-2.0); EOSINOPHILS # (AUTO) 0.1 K/uL (0.0-0.7); EOSINOPHILS % (AUTO) 0.9 % (0.0-6.0); HEMATOCRIT 24 % (33-45); HEMOGLOBIN 7.1 g/dL (11.5-14.8); LYMPHOCYTES # (AUTO) 0.6 K/uL (0.8-4.8); LYMPHOCYTES % (AUTO) 7.7 % (20.0-44.0); MEAN CORPUSCULAR HEMOGLOBIN 17 PG (26.0-33.0); MEAN CORPUSCULAR HGB CONC 30 g/dl (31.0-36.0); MEAN CORPUSCULAR VOLUME 58 fL (82-100); MONOCYTES # (AUTO) 0.8 K/uL (0.1-1.30); MONOCYTES % (AUTO) 10.4 % (2.0-12.0); NEUTROPHILS # (AUTO) 6.2 K/uL (1.8-8.9); NEUTROPHILS % (AUTO) 79.7 % (43.0-81.0); PLATELET COUNT (AUTO) 229 K/uL (150-450); RED BLOOD CELL COUNT(AUTO) 4.09 MIL/uL (4.0-5.2); RED CELL DISTRIBUTION WIDTH 18.8 % (11.5-15.0); WHITE BLOOD COUNT (AUTO) 7.7 K/uL (4.3-11.0)
[2024-11-16 17:57] LABS: ALBUMIN 2.3 g/dL (3.4-5.0); BILIRUBIN,TOTAL 0.6 mg/dL (0.2-1.0); CALCIUM, SERUM 7.9 mg/dL (8.5-10.1); CREATININE 1.2 mg/dL (0.6-1.3); MAGNESIUM 1.7 mg/dL (1.8-2.4); PHOSPHORUS 2.5 mg/dL (2.5-4.9); TOTAL PROTEIN, SERUM 5.1 g/dL (6.4-8.2)
[2024-11-16 18:24] LABS: POTASSIUM 2.7 mmol/L (3.5-5.1)
[2024-11-16 20:00] VITALS: BP 97/47; TEMP 97.3; O2SAT 100
[2024-11-16] MEDS: PIPERACILLIN /TAZOBACTAM 2.25 G in IV D5W 50 ML IV SCH (20:58)
[2024-11-16 21:39] LABS: ANISOCYTOSIS 2+; BASOPHILS % (MANUAL) 0 % (0.0-2.0); EOSINOPHILS % (MANUAL) 1 % (0-4); HYPOCHROMASIA 2+; LYMPHOCYTES % (MANUAL) 5 % (16-48); MONOCYTES % (MANUAL) 8 % (0-11.0); NEUTROPHILS % (MANUAL) 86 (42-76); PLATELET ESTIMATE ADEQUATE
[2024-11-17] VITALS (10 sets, daily range): BP systolic 93–110; BP diastolic 52–85; TEMP 97.7–99; O2SAT 96–100
[2024-11-17 06:20] LABS: ALBUMIN 2.2 g/dL (3.4-5.0); BASOPHILS # (AUTO) 0.1 K/uL (0.0-0.2); BASOPHILS % (AUTO) 1.5 % (0.0-2.0); BILIRUBIN,TOTAL 0.5 mg/dL (0.2-1.0); CALCIUM, SERUM 8.1 mg/dL (8.5-10.1); CREATININE 0.9 mg/dL (0.6-1.3); EOSINOPHILS # (AUTO) 0.1 K/uL (0.0-0.7); EOSINOPHILS % (AUTO) 2.2 % (0.0-6.0); HEMATOCRIT 23 % (33-45); LYMPHOCYTES # (AUTO) 0.7 K/uL (0.8-4.8); LYMPHOCYTES % (AUTO) 12.5 % (20.0-44.0); MAGNESIUM 1.8 mg/dL (1.8-2.4); MEAN CORPUSCULAR HEMOGLOBIN 17 PG (26.0-33.0); MEAN CORPUSCULAR HGB CONC 29 g/dl (31.0-36.0); MEAN CORPUSCULAR VOLUME 59 fL (82-100); MONOCYTES # (AUTO) 0.9 K/uL (0.1-1.30); MONOCYTES % (AUTO) 15.4 % (2.0-12.0); NEUTROPHILS # (AUTO) 3.9 K/uL (1.8-8.9); NEUTROPHILS % (AUTO) 68.4 % (43.0-81.0); PHOSPHORUS 2.2 mg/dL (2.5-4.9); PLATELET COUNT (AUTO) 198 K/uL (150-450); POTASSIUM 3.3 mmol/L (3.5-5.1); RED BLOOD CELL COUNT(AUTO) 3.86 MIL/uL (4.0-5.2); RED CELL DISTRIBUTION WIDTH 18.9 % (11.5-15.0); TOTAL PROTEIN, SERUM 4.8 g/dL (6.4-8.2); WHITE BLOOD COUNT (AUTO) 5.6 K/uL (4.3-11.0)
[2024-11-17 06:21] LABS: HEMOGLOBIN 6.7 g/dL (11.5-14.8)
[2024-11-17 06:39] LABS: ANISOCYTOSIS 1+; BASOPHILS % (MANUAL) 0 % (0.0-2.0); EOSINOPHILS % (MANUAL) 2 % (0-4); HYPOCHROMASIA 1+; LYMPHOCYTES % (MANUAL) 11 % (16-48); MONOCYTES % (MANUAL) 16 % (0-11.0); NEUTROPHILS % (MANUAL) 71 (42-76); OVALOCYTES 1+; PLATELET ESTIMATE ADEQUATE
[2024-11-17 09:07] LABS: PTH, INTACT 42 pg/mL (15-65)
[2024-11-17] MEDS: POTASSIUM PHOSPHATE MM 7.5 MMOL in IV NS 0.9% 100 ML IV SCH (11:11)
[2024-11-17] MEDS: VANCOMYCIN 1 GM in IV D5W 250ml IV SCH (14:00)
[2024-11-17] MEDS ORDERED: FUROSEMIDE 20 MG/2 ML VIAL IV SCH (15:00)
[2024-11-17] MEDS: FUROSEMIDE 20 MG/2 ML VIAL IV ONE (15:07)
[2024-11-17 16:09] LABS: *SPE ALBUMIN 2.4 g/dL (2.9-4.4); *SPE ALPHA-1-GLOBULIN 0.4 g/dL (0.0-0.4); *SPE ALPHA-2-GLOBULIN 0.6 g/dL (0.4-1.0); *SPE BETA GLOBULIN 0.8 g/dL (0.7-1.3); *SPE GLOBULIN, TOTAL 2.5 g/dL (2.2-3.9); *SPE M-SPIKE Not Observed g/dL (Not Observed); *SPE PROTEIN TOTAL 4.9 g/dL (6.0-8.5); *SPEGAMMA GLOBULIN 0.8 g/dL (0.4-1.8)
[2024-11-17] MEDS: POTASSIUM CL. PREMIX PERIPHER. 50 ML IV SCH (16:09)
[2024-11-17 18:36] LABS: CALCIUM, SERUM 8.1 mg/dL (8.5-10.1); POTASSIUM 3.2 mmol/L (3.5-5.1)
[2024-11-18] VITALS (9 sets, daily range): BP systolic 104–130; BP diastolic 54–80; TEMP 97.8–98.8; O2SAT 98–100
[2024-11-18] MEDS: IV NS 0.9% 1,000 ML IV PRN (03:37)
[2024-11-18] MEDS ORDERED: ANESTHESIA TRAY IN PYXIS 1 EA TRAY MC ONE (06:16)
[2024-11-18 07:03] LABS: BASOPHILS # (AUTO) 0.1 K/uL (0.0-0.2); BASOPHILS % (AUTO) 0.9 % (0.0-2.0); EOSINOPHILS # (AUTO) 0.2 K/uL (0.0-0.7); EOSINOPHILS % (AUTO) 2.4 % (0.0-6.0); HEMATOCRIT 30 % (33-45); HEMOGLOBIN 9.3 g/dL (11.5-14.8); LYMPHOCYTES # (AUTO) 1.5 K/uL (0.8-4.8); LYMPHOCYTES % (AUTO) 16.1 % (20.0-44.0); MEAN CORPUSCULAR HEMOGLOBIN 20 PG (26.0-33.0); MEAN CORPUSCULAR HGB CONC 31 g/dl (31.0-36.0); MEAN CORPUSCULAR VOLUME 64 fL (82-100); MONOCYTES # (AUTO) 1.6 K/uL (0.1-1.30); MONOCYTES % (AUTO) 17.4 % (2.0-12.0); NEUTROPHILS # (AUTO) 5.7 K/uL (1.8-8.9); NEUTROPHILS % (AUTO) 63.2 % (43.0-81.0); PLATELET COUNT (AUTO) 200 K/uL (150-450); RED BLOOD CELL COUNT(AUTO) 4.71 MIL/uL (4.0-5.2); RED CELL DISTRIBUTION WIDTH 22.4 % (11.5-15.0)
[2024-11-18 07:06] LABS: CALCIUM, SERUM 8.6 mg/dL (8.5-10.1); CREATININE 0.9 mg/dL (0.6-1.3); POTASSIUM 3.1 mmol/L (3.5-5.1)
[2024-11-18 07:12] LABS: MAGNESIUM 1.6 mg/dL (1.8-2.4); PHOSPHORUS 2.8 mg/dL (2.5-4.9)
[2024-11-18] MEDS: LEVOTHYROXINE SODIUM 75 MCG TABLET PO SCH (08:30)
[2024-11-18] MEDS: POTASSIUM CHLORIDE 20 MEQ TAB.PRT.SR PO SCH (09:30)
[2024-11-18] MEDS: MAGNESIUM OXIDE 400 MG TABLET PO ONE (09:31)
[2024-11-18 16:22] LABS: BASOPHILS # (AUTO) 0.1 K/uL (0.0-0.2); BASOPHILS % (AUTO) 1.3 % (0.0-2.0); EOSINOPHILS # (AUTO) 0.2 K/uL (0.0-0.7); HEMATOCRIT 29 % (33-45); HEMOGLOBIN 9.1 g/dL (11.5-14.8); LYMPHOCYTES # (AUTO) 1.5 K/uL (0.8-4.8); LYMPHOCYTES % (AUTO) 16.1 % (20.0-44.0); MEAN CORPUSCULAR HEMOGLOBIN 20 PG (26.0-33.0); MEAN CORPUSCULAR HGB CONC 31 g/dl (31.0-36.0); MEAN CORPUSCULAR VOLUME 63 fL (82-100); MONOCYTES # (AUTO) 1.1 K/uL (0.1-1.30); MONOCYTES % (AUTO) 11.9 % (2.0-12.0); NEUTROPHILS # (AUTO) 6.4 K/uL (1.8-8.9); NEUTROPHILS % (AUTO) 68.7 % (43.0-81.0); PLATELET COUNT (AUTO) 194 K/uL (150-450); RED BLOOD CELL COUNT(AUTO) 4.64 MIL/uL (4.0-5.2); RED CELL DISTRIBUTION WIDTH 23.3 % (11.5-15.0); WHITE BLOOD COUNT (AUTO) 9.3 K/uL (4.3-11.0)
[2024-11-18 16:28] LABS: CALCIUM, SERUM 8.3 mg/dL (8.5-10.1); CREATININE 1.2 mg/dL (0.6-1.3); POTASSIUM 3.1 mmol/L (3.5-5.1)
[2024-11-18 16:34] LABS: ALBUMIN 2.4 g/dL (3.4-5.0); BILIRUBIN,TOTAL 0.6 mg/dL (0.2-1.0); TOTAL PROTEIN, SERUM 5.3 g/dL (6.4-8.2)
[2024-11-18 17:21] LABS: BAND % (MANUAL) 1 % (0.0-5.0); EOSINOPHILS % (MANUAL) 5 % (0-4); LYMPHOCYTES % (MANUAL) 23 % (16-48); MONOCYTES % (MANUAL) 8 % (0-11.0); NEUTROPHILS % (MANUAL) 63 (42-76)
[2024-11-18 17:22] LABS: ANISOCYTOSIS 1+; HYPOCHROMASIA 1+; PLATELET ESTIMATE ADEQUATE
[2024-11-18] MEDS: PANTOPRAZOLE 40 MG TABLET.DR PO SCH (21:03)
[2024-11-19 05:03] VITALS: BP 129/86; TEMP 98.2; O2SAT 100
[2024-11-19 06:53] LABS: CALCIUM, SERUM 8.2 mg/dL (8.5-10.1); CREATININE 0.9 mg/dL (0.6-1.3); POTASSIUM 3.3 mmol/L (3.5-5.1)
[2024-11-19 07:39] LABS: MAGNESIUM 1.4 mg/dL (1.8-2.4); PHOSPHORUS 2.3 mg/dL (2.5-4.9)
[2024-11-19 08:18] LABS: BASOPHILS # (AUTO) 0.1 K/uL (0.0-0.2); EOSINOPHILS # (AUTO) 0.3 K/uL (0.0-0.7)
[2024-11-19 08:42] LABS: EOSINOPHILS % (AUTO) 3.5 % (0.0-6.0); HEMATOCRIT 27 % (33-45); HEMOGLOBIN 8.8 g/dL (11.5-14.8); LYMPHOCYTES # (AUTO) 1.6 K/uL (0.8-4.8); LYMPHOCYTES % (AUTO) 18.4 % (20.0-44.0); MEAN CORPUSCULAR HEMOGLOBIN 20 PG (26.0-33.0); MEAN CORPUSCULAR HGB CONC 33 g/dl (31.0-36.0); MEAN CORPUSCULAR VOLUME 63 fL (82-100); MONOCYTES # (AUTO) 1.1 K/uL (0.1-1.30); MONOCYTES % (AUTO) 13.1 % (2.0-12.0); NEUTROPHILS # (AUTO) 5.5 K/uL (1.8-8.9); PLATELET COUNT (AUTO) 182 K/uL (150-450); RED BLOOD CELL COUNT(AUTO) 4.33 MIL/uL (4.0-5.2); RED CELL DISTRIBUTION WIDTH 24.3 % (11.5-15.0); WHITE BLOOD COUNT (AUTO) 8.6 K/uL (4.3-11.0)
[2024-11-19] MEDS: POTASSIUM CHLORIDE 20 MEQ TAB.PRT.SR PO SCH (10:08)
[2024-11-19] MEDS: MAGNESIUM OXIDE 400 MG TABLET PO ONE (10:08)
[2024-11-19 11:22] LABS: ANISOCYTOSIS 2+; BASOPHILS % (MANUAL) 0 % (0.0-2.0); EOSINOPHILS % (MANUAL) 0 % (0-4); LYMPHOCYTES % (MANUAL) 20 % (16-48); MONOCYTES % (MANUAL) 11 % (0-11.0); NEUTROPHILS % (MANUAL) 64 (42-76); OVALOCYTES 1+; PLATELET ESTIMATE ADEQUATE
[2024-11-19 13:00] VITALS: BP 101/65; TEMP 97.7; O2SAT 93
[2024-11-19] MEDS: K PHOS NEUTRAL 250 MG TABLET PO ONE (17:04)
[2024-11-20 04:00] VITALS: BP 106/70; TEMP 98.4; O2SAT 96
[2024-11-20] MEDS: CEFTRIAXONE 1GM BAG (ER ONLY) 50 ML IV ONE (05:07)
[2024-11-20] MEDS: CEFTRIAXONE 1 G in IV D5W 50 ML IV SCH (05:09)
[2024-11-20 06:57] LABS: BASOPHILS # (AUTO) 0.1 K/uL (0.0-0.2); BASOPHILS % (AUTO) 1.2 % (0.0-2.0); EOSINOPHILS # (AUTO) 0.3 K/uL (0.0-0.7); EOSINOPHILS % (AUTO) 3.1 % (0.0-6.0); HEMATOCRIT 27 % (33-45); HEMOGLOBIN 8.4 g/dL (11.5-14.8); LYMPHOCYTES # (AUTO) 1.7 K/uL (0.8-4.8); LYMPHOCYTES % (AUTO) 19.2 % (20.0-44.0); MEAN CORPUSCULAR HEMOGLOBIN 19 PG (26.0-33.0); MEAN CORPUSCULAR HGB CONC 31 g/dl (31.0-36.0); MEAN CORPUSCULAR VOLUME 62 fL (82-100); NEUTROPHILS # (AUTO) 5.9 K/uL (1.8-8.9); NEUTROPHILS % (AUTO) 65.5 % (43.0-81.0); PLATELET COUNT (AUTO) 190 K/uL (150-450); RED BLOOD CELL COUNT(AUTO) 4.35 MIL/uL (4.0-5.2); RED CELL DISTRIBUTION WIDTH 20.8 % (11.5-15.0)
[2024-11-20 07:10] LABS: MAGNESIUM 1.6 mg/dL (1.8-2.4)
[2024-11-20 07:17] LABS: CALCIUM, SERUM 8.5 mg/dL (8.5-10.1); CREATININE 0.6 mg/dL (0.6-1.3); POTASSIUM 4.1 mmol/L (3.5-5.1)
[2024-11-20] MEDS: Magnesium 1GM/D5W 100ML PREMIX 100 ML IV SCH (09:57)
[2024-11-20 16:00] VITALS: BP 118/69; TEMP 98.1; O2SAT 96
[2024-11-20 21:52] VITALS: BP 108/76; TEMP 98.1; O2SAT 99
[2024-11-21 04:54] VITALS: BP 115/73; TEMP 97.7; O2SAT 100
[2024-11-21 07:45] LABS: BASOPHILS # (AUTO) 0.1 K/uL (0.0-0.2); BASOPHILS % (AUTO) 1.2 % (0.0-2.0); EOSINOPHILS # (AUTO) 0.3 K/uL (0.0-0.7); EOSINOPHILS % (AUTO) 3.3 % (0.0-6.0); HEMATOCRIT 31 % (33-45); HEMOGLOBIN 9.2 g/dL (11.5-14.8); LYMPHOCYTES # (AUTO) 1.5 K/uL (0.8-4.8); LYMPHOCYTES % (AUTO) 16.5 % (20.0-44.0); MEAN CORPUSCULAR HEMOGLOBIN 19 PG (26.0-33.0); MEAN CORPUSCULAR HGB CONC 30 g/dl (31.0-36.0); MEAN CORPUSCULAR VOLUME 63 fL (82-100); MONOCYTES # (AUTO) 1.1 K/uL (0.1-1.30); MONOCYTES % (AUTO) 12.2 % (2.0-12.0); NEUTROPHILS # (AUTO) 6.1 K/uL (1.8-8.9); NEUTROPHILS % (AUTO) 66.8 % (43.0-81.0); PLATELET COUNT (AUTO) 210 K/uL (150-450); RED BLOOD CELL COUNT(AUTO) 4.86 MIL/uL (4.0-5.2); RED CELL DISTRIBUTION WIDTH 25.3 % (11.5-15.0); WHITE BLOOD COUNT (AUTO) 9.2 K/uL (4.3-11.0)
[2024-11-21 08:00] VITALS: BP 117/64; TEMP 97.9; O2SAT 95
[2024-11-21 08:01] LABS: CALCIUM, SERUM 8.9 mg/dL (8.5-10.1); CREATININE 0.6 mg/dL (0.6-1.3); PHOSPHORUS 3.2 mg/dL (2.5-4.9)
[2024-11-21 10:10] LABS: EOSINOPHILS % (MANUAL) 5 % (0-4); LYMPHOCYTES % (MANUAL) 13 % (16-48); MONOCYTES % (MANUAL) 4 % (0-11.0); NEUTROPHILS % (MANUAL) 78 (42-76)
[2024-11-21 10:11] LABS: ANISOCYTOSIS 1+; HYPOCHROMASIA 1+; OVALOCYTES 1+; PLATELET ESTIMATE ADEQUATE
[2024-11-21 16:00] VITALS: BP 117/64; TEMP 98.4; O2SAT 95
[2024-11-21] MEDS: ENSURE ENLIVE 237 ML LIQUID (VANILLA) PO SCH (17:00)
[2024-11-21 20:00] VITALS: BP 109/67; TEMP 98.2; O2SAT 100
[2024-11-22 04:00] VITALS: BP 140/70; TEMP 98; O2SAT 100
[2024-11-22 06:35] LABS: BASOPHILS # (AUTO) 0.1 K/uL (0.0-0.2); BASOPHILS % (AUTO) 1.2 % (0.0-2.0); EOSINOPHILS # (AUTO) 0.3 K/uL (0.0-0.7); EOSINOPHILS % (AUTO) 2.8 % (0.0-6.0); HEMATOCRIT 32 % (33-45); HEMOGLOBIN 9.7 g/dL (11.5-14.8); LYMPHOCYTES # (AUTO) 1.6 K/uL (0.8-4.8); LYMPHOCYTES % (AUTO) 15.6 % (20.0-44.0); MEAN CORPUSCULAR HEMOGLOBIN 19 PG (26.0-33.0); MEAN CORPUSCULAR HGB CONC 30 g/dl (31.0-36.0); MEAN CORPUSCULAR VOLUME 64 fL (82-100); MONOCYTES # (AUTO) 1.2 K/uL (0.1-1.30); NEUTROPHILS # (AUTO) 7.3 K/uL (1.8-8.9); NEUTROPHILS % (AUTO) 69.4 % (43.0-81.0); PLATELET COUNT (AUTO) 278 K/uL (150-450); RED BLOOD CELL COUNT(AUTO) 5.07 MIL/uL (4.0-5.2); RED CELL DISTRIBUTION WIDTH 24.8 % (11.5-15.0); WHITE BLOOD COUNT (AUTO) 10.5 K/uL (4.3-11.0)
[2024-11-22 06:45] LABS: CALCIUM, SERUM 9.1 mg/dL (8.5-10.1); CREATININE 0.6 mg/dL (0.6-1.3); POTASSIUM 3.9 mmol/L (3.5-5.1)
[2024-11-22 06:49] LABS: MAGNESIUM 1.9 mg/dL (1.8-2.4); PHOSPHORUS 2.7 mg/dL (2.5-4.9)
[2024-11-22] MEDS: CEFTRIAXONE 1GM BAG (ER ONLY) 50 ML IV ONE (07:39)
[2024-11-22 08:00] VITALS: BP 119/96; TEMP 97.9; O2SAT 100
[2024-11-22 16:00] VITALS: BP 127/71; TEMP 98.1; O2SAT 99
[2024-11-22] MEDS: ENSURE ENLIVE CHOC 237 ML CAN PO SCH (17:44)
[2024-11-22 20:00] VITALS: BP 121/80; TEMP 97.9; O2SAT 100
[2024-11-23 04:00] VITALS: BP 120/79; TEMP 97.8; O2SAT 100
[2024-11-23 05:00] VITALS: BP 114/85; TEMP 98.1; O2SAT 100
[2024-11-23 07:21] LABS: MAGNESIUM 1.8 mg/dL (1.8-2.4); PHOSPHORUS 2.9 mg/dL (2.5-4.9)
[2024-11-23 07:36] LABS: BASOPHILS # (AUTO) 0.1 K/uL (0.0-0.2); BASOPHILS % (AUTO) 1.2 % (0.0-2.0); EOSINOPHILS # (AUTO) 0.3 K/uL (0.0-0.7); EOSINOPHILS % (AUTO) 2.7 % (0.0-6.0); HEMATOCRIT 31 % (33-45); HEMOGLOBIN 9.5 g/dL (11.5-14.8); LYMPHOCYTES # (AUTO) 1.6 K/uL (0.8-4.8); MEAN CORPUSCULAR HEMOGLOBIN 19 PG (26.0-33.0); MEAN CORPUSCULAR HGB CONC 31 g/dl (31.0-36.0); MEAN CORPUSCULAR VOLUME 63 fL (82-100); MONOCYTES # (AUTO) 1.5 K/uL (0.1-1.30); MONOCYTES % (AUTO) 13.3 % (2.0-12.0); NEUTROPHILS # (AUTO) 7.8 K/uL (1.8-8.9); NEUTROPHILS % (AUTO) 68.8 % (43.0-81.0); PLATELET COUNT (AUTO) 345 K/uL (150-450); RED BLOOD CELL COUNT(AUTO) 4.97 MIL/uL (4.0-5.2); RED CELL DISTRIBUTION WIDTH 26.8 % (11.5-15.0); WHITE BLOOD COUNT (AUTO) 11.4 K/uL (4.3-11.0)
[2024-11-23] MEDS ORDERED: PANT40TA2 PO (11:33)
[2024-11-23 13:00] VITALS: BP 127/68; TEMP 98.1; O2SAT 99
== END 2024-11-23 13:27 | disposition home health service (06) | DRG 871 ==
LOC: ER 14:45 → TELE 21:00 → TELE-TD 22:03 → TELE1 11-16 09:42 → MEDSG1 11-18 08:48
PROVIDERS: ADMIT Nurse Practitioner Acute Care; ATTEND Nurse Practitioner Acute Care
PROC: 30233N1 Transfusion of Nonautologous Red Blood Cells into Peripheral Vein, Percutaneous Approach (ICD-10-PCS; 2024-11-17)
PROC: 0DB68ZX Excision of Stomach, Via Natural or Artificial Opening Endoscopic, Diagnostic (ICD-10-PCS; principal; 2024-11-18)
DX: A41.9 Sepsis, unspecified organism (principal); I50.33 Acute on chronic diastolic (congestive) heart failure; N17.0 Acute kidney failure with tubular necrosis; K29.71 Gastritis, unspecified, with bleeding; J96.01 Acute respiratory failure with hypoxia; N39.0 Urinary tract infection, site not specified; I13.0 Hypertensive heart and chronic kidney disease with heart failure and stage 1 through stage 4 chronic kidney disease, or unspecified chronic kidney disease; I48.20 Chronic atrial fibrillation, unspecified; Z16.24 Resistance to multiple antibiotics; J90 Pleural effusion, not elsewhere classified; R65.20 Severe sepsis without septic shock; D50.9 Iron deficiency anemia, unspecified; E87.6 Hypokalemia; N18.9 Chronic kidney disease, unspecified; Z20.822 Contact with and (suspected) exposure to COVID-19; K44.9 Diaphragmatic hernia without obstruction or gangrene; Z79.899 Other long term (current) drug therapy; Z79.890 Hormone replacement therapy; B96.89 Other specified bacterial agents as the cause of diseases classified elsewhere; E03.9 Hypothyroidism, unspecified; E78.5 Hyperlipidemia, unspecified; E88.09 Other disorders of plasma-protein metabolism, not elsewhere classified; F03.90 Unspecified dementia, unspecified severity, without behavioral disturbance, psychotic disturbance, mood disturbance, and anxiety; I25.10 Atherosclerotic heart disease of native coronary artery without angina pectoris; K21.9 Gastro-esophageal reflux disease without esophagitis; M89.8X9 Other specified disorders of bone, unspecified site; M81.0 Age-related osteoporosis without current pathological fracture; I27.20 Pulmonary hypertension, unspecified; Z79.01 Long term (current) use of anticoagulants; R59.0 Localized enlarged lymph nodes; K62.9 Disease of anus and rectum, unspecified; F41.9 Anxiety disorder, unspecified; F32.A Depression, unspecified
CPT/HCPCS: 36415; 36600; 71045-TC; 71250-TC; 76770-TC; 80048-TC; 80053-TC; 80076-TC; 80202-TC; 81001; 82140-TC; 82272-TC; 82550-TC; 82728-TC; 82803-TC; 82962-TC; 83540-TC; 83605-TC; 83735-TC; 83970; 84100-TC; 84155; 84165; 84484-TC; 85025-TC; 85027-TC; 85730-TC; 86850-TC; 87040-TC; 94799-TC; 97110-TC; 97116-TC; 97530-TC; 97535-TC; A4223; G0378; J0282; J0696; J1940; J2405; J2470; J2543; J3370; J3475; J3480; J3490; J7030; J7050; J7060; P9016